=== PATIENT | female | born 1945 | race African-American/Black ===

== ENCOUNTER 2017-04-09 11:05 | Inpatient (IN) | payer SELFPAY ==
[~2017-04-09] VITALS: Ht 170.2 cm; Wt 70.3 kg
[~2017-04-09 11:05] MED LIST: AMLODIPINE BESYL5 M1 PO; METFORMIN HCL500 M3 PO; MICARDIS40 M1 PO; PIOGLITAZONE HC30 M1 PO; TELMISARTAN80 M1 PO; TRAMADOL HCL50 M1 PO
--- NOTE | 2017-04-09 11:23 | ED GI/GU/ABDOMINAL COMPLAINT ---
History of Present Illness General Chief Complaint: General Adult Stated Complaint: ABD PAIN/FEET PAIN Source: patient, old records Exam Limitations: no limitations Vital Signs & Intake/Output Vital Signs & Intake/Output Vital Signs Date Time Temp Pulse Resp B/P B/P Pulse O2 O2 Flow FiO2 Mean Ox Delivery Rate 04/09 1615 97.7 87 18 144/90 96 Room Air 04/09 1201 97 Room Air 04/09 1109 96.8 104 15 98 Room Air Room Air Allergies Coded Allergies: No Known Allergies (04/09/17) Reconcile Medications Atorvastatin Calcium (Lipitor) 80 MG TABLET 1 TAB PO DAILY cholestrol ( Reported) Chlorthalidone 25 MG TABLET 1 TAB PO DAILY htn (Reported) Linagliptin (Tradjenta) 5 MG TABLET 1 TAB PO DAILY dm (Reported) Lisinopril 20 MG TABLET 1 TAB PO DAILY BP (Reported) Metformin HCl 500 MG TABLET 1 TAB PO BID DIABETES Triage Note: PT TO ED FOR C/C OF ABD PAIN THAT OCCURS ONLY AFTER EATING, WITH ASSOCIATED BELCHING. DENIES CHEST PAIN. DENIES N/V/D. PAIN HAS BEEN GOING ON FOR A COUPLE OF MONTHS. Triage Nurses Notes Reviewed? yes ? n Is pt currently ? No Onset: Gradual Duration: week(s):, intermittent, waxing and waning Timing: recent history Quality/Severity: aching Severity Numbers: 5 Radiation: no radiation Activities at Onset: eating Prior Abdominal Problems: none Modifying Factors: Worsens With: eating. Associated Symptoms: denies HPI: 71-year-old female history of hypertension diabetes presents emergency room with family after she moved here from [place] 2 weeks ago. She states for the past several months she's had epigastric and left upper quadrant abdominal pain that is worse when she becomes hungry or after eating. She has not sought care for the symptoms until today. She denies any associated nausea vomiting diarrhea black or bloody stools clear-colored stools. No chest pain shortness of breath. No history of abdominal surgeries in the past. She denies any jaundice or weight loss. She is also requesting refill of her metformin and enalapril and atorvastatin which she ran out of 2 weeks ago when she moved here from [place]. (Zacarias DIEHL,Denis) Past History Travel History Traveled to [place] past 21 day No Medical History Any Pertinent Medical History? 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 No (Denis Dc) Review of Systems Review of Systems Constitutional: Reports: no symptoms, see HPI. Comments Review of systems: See HPI, All other systems negative. Constitutional, no chills no fever, no malaise no weight loss HEENT: no sore throat no congestion, no ear pain Cardiovascular: No chest pain , no palpitation Skin: no rashes, no change in skin Respiratory: No dyspnea no cough no sputum no hemoptysis GI: No nausea no vomiting, no diarrhea, no bloating/constipation : No dysuria No hematuria, no frequency Muscle skeletal: No joint pain, no back pain, no neck pain, Neurologic: , no headache Psych: No stress no depression,. Heme/endocrine: No bruising no bleeding Immunology: No lymphadenopathy (Denis Dc) Physical Exam Physical Exam General Appearance: well developed/nourished, no apparent distress, alert Gastrointestinal: normal bowel sounds Comments: Well-developed well-nourished person in no acute distress HEENT: Normal EENT exam; PERRL, EOMI. HEAD is atraumatic. moist mucous membranes. Neck: Supple, normal range of motion Back: Nontender, no CVA tenderness. Full range of motion Cardiovascular: Regular rate and rhythms no murmurs rub Respiratory: Chest nontender.There were no bony deformities, no asymmetry. No respiratory distress. Patient speaking in full complete sentences. Breath sounds clear to auscultation bilaterally: NO W/R/R Abdomen: Soft, nontender nondistended, no appreciable organomegaly. Normal bowel sounds. No rebound/guarding, No ascites. Extremity: No edema, full range of motion of extremities Neuro: Alert oriented x3, motor sensory normal. There were no obvious focal neurologic abnormalities. Skin: No appreciable rash on exposed skin, skin is warm and dry. No jaundice Psych: Mood and affect is normal, memory and judgment is normal. Core Measures ACS in differential dx? Yes Sepsis Present: No Sepsis Focused Exam Completed? No (Zacarias DIEHL,Denis) Progress Differential Diagnosis: AMI, bowel obstruction, colon cancer, diverticulitis, gastritis, hepatitis, hernia, inflamm bowel dis, pancreatitis, peptic ulcer, PUD /GERD, perforated viscous, SBO, malignancy,m dka, hhs Plan of Care: Orders Procedure Date/time Status LIPID PANEL 04/10 0600 Active CBC WITHOUT DIFFERENTIAL 04/10 0600 Active BASIC ELECTROLYTES PLUS BUN&CR 04/10 0600 Active Consistent Carbohydrate 2 04/09 D Active BASIC ELECTROLYTES PLUS BUN&CR 04/09 1900 Active Pathway - chart 04/09 1622 Active House Staff 04/09 1622 Active Code Status 04/09 1622 Active Add-on Test (ER Only) 04/09 1618 Active Hemoccult 04/09 1618 Active Add-on Test (ER Only) 04/09 1447 Active Patient Data 04/09 1444 Active URINALYSIS 04/09 1400 Active FingerStick- Glucose 04/09 1358 Active ED Holding Orders 04/09 1339 Active Admit to inpatient 04/09 1339 Active Vital Signs 04/09 1339 Active Code Status 04/09 1339 Complete Add-on Test (ER Only) 04/09 1232 Active Intake & Output 04/09 1159 Active TOTAL IRON BINDING CAPACITY 04/09 1145 Active SERUM OSMOLALITY 04/09 1145 Active GLYCOSYLATED HGB 04/09 1145 Active FERRITIN 04/09 1145 Active SERUM IRON 04/09 1145 Active ACETONE 04/09 1145 Active TROPONIN LEVEL 04/09 1121 Active LIPASE 04/09 1121 Active COMPREHENSIVE METABOLIC PANEL 04/09 1121 Active CBC WITHOUT DIFFERENTIAL 04/09 1121 Complete EKG 04/09 1113 Active VTE Mechanical Prophylaxis 04/09 UNK Active Current Medications Sig/Yane Start time Last Medication Dose Stop Time Status Admin Lisinopril 20 MG DAILY 04/10 1000 AC (Prinivil) Heparin Sodium 5,000 UNIT Q8 04/09 2200 AC (Porcine) Insulin Aspart 0 AT BEDTIME 04/09 2200 CAN (NovoLOG) Insulin Detemir 4 UNITS BID 04/09 2200 AC (Levemir) Insulin Aspart 0 TIDAC 04/09 1700 r (NovoLOG) Acetaminophen 650 MG Q6P PRN 04/09 1630 AC (Tylenol) Calcium Carbonate 500 MG DAILY PRN 04/09 1545 AC (TUMS) Atorvastatin Calcium 80 MG DAILY 04/09 1544 AC (Lipitor) Omeprazole 40 MG DAILY AC 04/09 1541 AC (Prilosec) Laboratory Tests 04/09/17 1145: Anion Gap 14, Estimated GFR 34 L, BUN/Creatinine Ratio 25.3 H, Glucose 613 *H, Hemoglobin A1c Pending, Serum Osmolality 318 H, Calcium 9.8, Iron 98, TIBC Pending, Ferritin Pending, Total Bilirubin 0.3, AST 13 L, ALT 23, Alkaline Phosphatase 104, Troponin I < 0.01, Total Protein 7.3, Albumin 4.2, Globulin 3.1 , Albumin/Globulin Ratio 1.4, Lipase 219, CBC w Diff NO MAN DIFF REQ, RBC 4.51, MCV 79.0 L, MCH 26.1 L, MCHC 33.1, RDW 14.6 H, MPV 9.9, Gran % 58.4, Lymphocytes % 32.9, Monocytes % 6.9, Eosinophils % 0.5, Basophils % 1.3, Absolute Granulocytes 3.3, Absolute Lymphocytes 1.9, Absolute Monocytes 0.4, Absolute Eosinophils 0, Absolute Basophils 0.1, Acetone Level NEGATIVE Labs ordered old records reviewed CAT scan ordered. Case discussed with Dr. Arroyo. Patient seen and evaluated by Dr. Arroyo agrees with plan. Insulin 10 units IV ordered IV fluids running. Patient's Gran and 1.5 BUN elevated from previous results in the past. I discussed with patient and her granddaughter all of her results and CAT scan findings and incidental findings given she is recently emigrated here from [place] and has no follow-up I believe premature discharge would BE medically harmful. They are in agreement with plan for admission Diagnostic Imaging: Viewed by Me: CT Scan. Discussed w/RAD: CT Scan. Radiology Impression: PATIENT: KHLOE RILEY PRESENT AGE: 71 PATIENT ACCOUNT NO: [id number] : 46 LOCATION: [facility] ORDERING PHYSICIAN: Denis DIEHL SERVICE DATE: 04/09/17 EXAM TYPE: CAT - CT ABD & PELVIS W/O IV CONTRAS EXAMINATION: CT ABDOMEN AND PELVIS WITHOUT CONTRAST CLINICAL INFORMATION: Epigastric, left upper quadrant abdominal pain. Nausea. COMPARISON: None TECHNIQUE: Multidetector volumetric imaging was performed from the superior aspect of the liver through the pubic symphysis. Sagittal and coronal reformatted images were obtained on the technologist's workstation. DLP: 272.46 mGy-cm FINDINGS: Evaluation is technically limited due to lack of oral and intravenous contrast. LUNG BASES: 1.2 cm maximum dimension solid-appearing lung nodule is noted at left lower lobe posteromedially (image #[id number] series 3 ; see the reyes images). Mild bronchiectatic changes are also noted at right lung base. Linear pleural parenchymal presumed scar related changes are noted within the right middle lobe. Sub-5 mm calcified lung nodule is noted at right lower lobe posteromedially. Atherosclerotic disease including coronary artery calcifications are noted. LIVER, GALLBLADDER, AND BILIARY TREE: The liver is normal in size, shape, and attenuation. No focal hepatic lesion or biliary ductal dilatation is present. The gallbladder appears collapsed. PANCREAS: Unremarkable. SPLEEN: Unremarkable. ADRENAL GLANDS: Mild thickening of both adrenal glands is noted, likely changes without any discrete mass. KIDNEYS AND URETERS: The kidneys are normal in size, shape, and attenuation. No hydronephrosis, hydroureter, or calculi seen. No perinephric stranding. Subtle hypodensity is noted within the left mid posterior cortex, most consistent with 2.5 cm cortical renal cyst (Hounsfield value of 13). BLADDER: Tiny punctate wall calcification is noted along the anterior wall of the urinary bladder, otherwise unremarkable. GASTROINTESTINAL TRACT: The small and large bowel are unremarkable. The appendix is unremarkable. ABDOMINAL WALL: No significant hernia is appreciated. LYMPH NODES: Normal. VASCULAR: Mild atherosclerotic disease is noted within the aorta and its branches. PELVIC VISCERA: There is no pelvic mass present. There is no free fluid and/or free air present. The uterus is retroverted. OSSEOUS STRUCTURES: Severe compression fracture of T12 and L4 vertebral bodies is noted, indeterminate etiology and chronicity. IMPRESSION: 1. Technically limited study due to lack of oral and intravenous contrast. 2. 1.2 cm maximum dimension solid-appearing nodule is noted at left lower lobe of the lung posteromedially. A nonemergent follow-up CT scan of the chest is recommended for further full detail evaluation. 3. Mild thickening of both adrenal glands, most consistent with mild adrenal hyperplasia. 2.5 cm left renal hypodensity, most consistent with cortical renal cyst. 4. Tiny punctate urinary bladder wall calcification. 5. Severe compression fracture of T12 and L4 vertebral bodies, indeterminate etiology and chronicity. DICTATED BY: Christi Sánchez MD DATE/TIME DICTATED:04/09/171302 WARM IN WORKER:COLEMAN DATE/ TIME TRANSCRIBED:04/09/171302 CONFIDENTIAL, DO NOT COPY WITHOUT APPROPRIATE AUTHORIZATION. <Electronically signed in Other Vendor System> SIGNED BY: Christi Sánchez MD 04/09/17 1358 Initial ED EKG: normal p-waves, normal QRS complex, normal sinus rhythm (80), nonspecific ST T wave chg (Denis Dc) Departure Departure Time of Disposition: 1450 Disposition: STILL A PATIENT Condition: Stable Clinical Impression Primary Impression: Uncontrolled diabetes mellitus Secondary Impressions: Acute kidney injury, Hyperkalemia, Lung nodule Referrals: Stephen HARTMAN,Pedro Kaur MD,Smitha Lynn Patient Has No Primary Care Dr (PCP/Family) Additional Instructions: Follow up with primary care physician dr kaur as well as watershed coordinator dr santamaria. bland diet, no fatty spicy greasy foods. protonix as directed. return at anytime sooner with any concerns Departure Forms: Customer Survey General Discharge Information Admission Note Spoke With: Jer Thomson MD Documentation of Exam: Documentation of any treatments & extenuating circumstances including Concerns Regarding Discharge (functional status, medication knowledge or non-compliance, living conditions, etc.) that warrant an admission rather than observation: ENDOCRINE, GI CONSULT, IV FLUIDS, INSULIN, PREMATURE DISCHARGE WOULD BE MEDICALLY HARMFUL, PT IS NEW TO THIS COUNTRY, NO AVAILABLE FOLLOW UP THIS WEEK. (Denis Dc) PA/MECHANICAL SYSTEMS DESIGN ENGINEER Co-Sign Statement Statement: ED Attending supervision documentation- [x] I saw and evaluated the patient. I have also reviewed all the pertinent lab results and diagnostic results. I agree with the findings and the plan of care as documented in the PA's/MECHANICAL SYSTEMS DESIGN ENGINEER's documentation. [] I have reviewed the ED Record and agree with the PA's/MECHANICAL SYSTEMS DESIGN ENGINEER's documentation. [] Additions or exceptions (if any) to the PAs/MECHANICAL SYSTEMS DESIGN ENGINEER's note and plan are summarized below: [] (Waldo Arroyo DO
[2017-04-09 11:53] LABS: ABSOLUTE BASOPHIL COUNT 0.1 /CUMM (0.0-0.2); ABSOLUTE EOSINOPHIL COUNT 0 /CUMM (0.0-0.7); ABSOLUTE GRANULOCYTE CT 3.3 /CUMM (1.4-6.5); ABSOLUTE LYMPH COUNT 1.9 /CUMM (1.2-3.4); ABSOLUTE MONOCYTE COUNT 0.4 /CUMM (0.10-0.60); BASOPHIL % 1.3 % (0.0-2.0); EOSINOPHIL % 0.5 % (0-5); GRANULOCYTE % 58.4 % (42.2-75.2); HEMATOCRIT 35.6 % (37-47); MEAN CORPUSCULAR HGB 26.1 PG (27.0-31.0); MEAN CORPUSCULAR HGB CONC 33.1 G/DL (33.0-37.0); MEAN PLATELET VOLUME 9.9 FL (7.4-10.4); PLATELET COUNT 195 /CUMM (130-400); RBC DISTRIBUTION WIDTH 14.6 % (11.5-14.5); RED BLOOD CELL CT 4.51 /CUMM (4.20-5.40); WHITE BLOOD CELL COUNT 5.7 /CUMM (4.8-10.8)
--- NOTE | 2017-04-09 13:58 | CT SCAN REPORT ---
EXAMINATION: CT ABDOMEN AND PELVIS WITHOUT CONTRAST CLINICAL INFORMATION: Epigastric, left upper quadrant abdominal pain. Nausea. COMPARISON: None TECHNIQUE: Multidetector volumetric imaging was performed from the superior aspect of the liver through the pubic symphysis. Sagittal and coronal reformatted images were obtained on the technologist's workstation. DLP: 272.46 mGy-cm FINDINGS: Evaluation is technically limited due to lack of oral and intravenous contrast. LUNG BASES: 1.2 cm maximum dimension solid-appearing lung nodule is noted at left lower lobe posteromedially (image #[id number] series 3; see the reyes images). Mild bronchiectatic changes are also noted at right lung base. Linear pleural parenchymal presumed scar related changes are noted within the right middle lobe. Sub-5 mm calcified lung nodule is noted at right lower lobe posteromedially. Atherosclerotic disease including coronary artery calcifications are noted. LIVER, GALLBLADDER, AND BILIARY TREE: The liver is normal in size, shape, and attenuation. No focal hepatic lesion or biliary ductal dilatation is present. The gallbladder appears collapsed. PANCREAS: Unremarkable. SPLEEN: Unremarkable. ADRENAL GLANDS: Mild thickening of both adrenal glands is noted, likely changes without any discrete mass. KIDNEYS AND URETERS: The kidneys are normal in size, shape, and attenuation. No hydronephrosis, hydroureter, or calculi seen. No perinephric stranding. Subtle hypodensity is noted within the left mid posterior cortex, most consistent with 2.5 cm cortical renal cyst (Hounsfield value of 13). BLADDER: Tiny punctate wall calcification is noted along the anterior wall of the urinary bladder, otherwise unremarkable. GASTROINTESTINAL TRACT: The small and large bowel are unremarkable. The appendix is unremarkable. ABDOMINAL WALL: No significant hernia is appreciated. LYMPH NODES: Normal. VASCULAR: Mild atherosclerotic disease is noted within the aorta and its branches. PELVIC VISCERA: There is no pelvic mass present. There is no free fluid and/or free air present. The uterus is retroverted. OSSEOUS STRUCTURES: Severe compression fracture of T12 and L4 vertebral bodies is noted, indeterminate etiology and chronicity. IMPRESSION: 1. Technically limited study due to lack of oral and intravenous contrast. 2. 1.2 cm maximum dimension solid-appearing nodule is noted at left lower lobe of the lung posteromedially. A nonemergent follow-up CT scan of the chest is recommended for further full detail evaluation. 3. Mild thickening of both adrenal glands, most consistent with mild adrenal hyperplasia. 2.5 cm left renal hypodensity, most consistent with cortical renal cyst. 4. Tiny punctate urinary bladder wall calcification. 5. Severe compression fracture of T12 and L4 vertebral bodies, indeterminate etiology and chronicity.
--- NOTE | 2017-04-09 14:54 | History & Physical ---
Kg Braswell 04/09/17 1453: General Information and HPI MD Statement: I have seen and personally examined KHLOE COLBERT and documented this H&P. The patient is a 71 year old F who presented with a patient stated chief complaint of [abd pain, med refill, high sugar]. Source of Information: patient, family Exam Limitations: no limitations History of Present Illness: 71 year old lady with pmh of diabetes on metformin and transient, hypertension on lisinopril came with chief complaint of abdominal discomfort in the epigastric area with mild dizziness. Information was obtained from patient and her daughter. Apparently patient had mild epigastric discomfort she is feeling hungry with empty stomach for many months, and she felt faint with occasional acid reflux after meals. Patient denies any nausea, vomiting, weight loss, weight gain, melena, bloody bowel movements, RUQ tenderness, chest pain, shortness of breath. She does report of polyuria with occasional urge incontinence at nights Patient does report of occasional weakness in the ankles with possible tingling but no numbness, blurry vision, weakness anywhere else, joint pain. Apparently patient has been falling of any PCP in [facility] however she left to [place] for couple of months and she was out of medication after coming back to [place] for couple of weeks. Vital signs in the ED were stable, EKG shows sinus rhythm, 95, elevated INR in V4 and V5 and V6 with inverted T's, QTC 453 Potassium 5.3, sodium 133, chloride 95, creatinine 1.5, glucose 613, serum osmolality 318, troponin 0.01, lipase, amylase, ALT, AST were unremarkable, hemoglobin 11.8, MCV [address] scan IMPRESSION: 1. Technically limited study due to lack of oral and intravenous contrast. 2. 1.2 cm maximum dimension solid-appearing nodule is noted at left lower lobe of the lung posteromedially. A nonemergent follow-up CT scan of the chest is recommended for further full detail evaluation. 3. Mild thickening of both adrenal glands, most consistent with mild adrenal hyperplasia. 2.5 cm left renal hypodensity, most consistent with cortical renal cyst. 4. Tiny punctate urinary bladder wall calcification. 5. Severe compression fracture of T12 and L4 vertebral bodies, indeterminate etiology and chronicity. Allergies/Medications Allergies: Coded Allergies: No Known Allergies (04/09/17) Home Med list Atorvastatin Calcium (Lipitor) 80 MG TABLET 1 TAB PO DAILY cholestrol ( Reported) Chlorthalidone 25 MG TABLET 1 TAB PO DAILY htn (Reported) Cholecalciferol (Vitamin D3) 1,000 UNIT TABLET 2,000 IU PO DAILY Bone health Glimepiride 2 MG TABLET 1 TAB PO DAILY BLOOD SUGAR take with bigger meal Linagliptin (Tradjenta) 5 MG TABLET 1 TAB PO DAILY dm (Reported) Lisinopril 20 MG TABLET 1 TAB PO DAILY BP (Reported) Metformin HCl (Metformin HCl ER) 1,000 MG TAB.ER.24 1 TAB PO BID bLOOD SUGAR WITH BREAKFAST AND WITH DINNER Metformin HCl 500 MG TABLET 1 TAB PO BID DIABETES Omeprazole 20 MG CAPSULE.DR 40 MG PO DAILY AC STOMACH HEALTH Past History Travel History Traveled to [place] past 21 day No Medical History Neurological: NONE EENT: NONE Cardiovascular: hypertension Respiratory: NONE Gastrointestinal: NONE Hepatic: NONE Renal: NONE Musculoskeletal: NONE Psychiatric: NONE Endocrine: diabetes Blood Disorders: NONE Cancer(s): NONE OBGYN NURSE/Reproductive: NONE Surgical History Surgical History: non-contributory Past Family/Social History Psychosocial History ETOH Use: denies use Illicit Drug Use: denies illicit drug use Review of Systems Review of Systems Constitutional: Reports: see HPI. Exam & Diagnostic Data Last 24 Hrs of Vital Signs/I&O Vital Signs Date Time Temp Pulse Resp B/P B/P Pulse O2 O2 Flow FiO2 Mean Ox Delivery Rate 04/09 1700 98.7 75 18 152/70 100 Room Air 04/09 1615 97.7 87 18 144/90 96 Room Air 04/09 1201 97 Room Air 04/09 1109 96.8 104 15 98 Room Air Room Air Intake & Output 04/09 1600 04/09 0800 04/09 0000 Intake Total 0 Output Total Balance 0 Intake, Oral 0 Patient 71.668 kg Weight Weight Reported by Patient Measurement Method Physical Exam General Appearance Alert, Oriented X3, Cooperative, No Acute Distress Cardiovascular Regular Rate, Normal S1, Normal S2, marked s2 Lungs Clear to Auscultation, Normal Air Movement Abdomen Normal Bowel Sounds, Soft, mild epigastric tenderness Neurological Normal Speech, Strength at 5/5 X4 Ext Extremities No Clubbing, No Cyanosis, No Edema Assessment/Plan Assessment: 71 year old lady with pmh of diabetes on metformin and transient, hypertension on lisinopril came with chief complaint of abdominal discomfort in the epigastric area with mild dizziness. Information was obtained from patient and her daughter. Apparently patient had mild epigastric discomfort she is feeling hungry with empty stomach for many months, and she felt faint with occasional acid reflux after meals. Patient denies any nausea, vomiting, weight loss, weight gain, melena, bloody bowel movements, RUQ tenderness, chest pain, shortness of breath. She does report of polyuria with occasional urge incontinence at nights Vital signs in the ED were stable, EKG shows sinus rhythm, 95, elevated INR in V4 and V5 and V6 with inverted T's, QTC 453 Potassium 5.3, sodium 133, chloride 95, creatinine 1.5, glucose 613, serum osmolality 318, troponin 0.01, lipase, amylase, ALT, AST were unremarkable, hemoglobin 11.8, MCV [address] scan IMPRESSION: 1. Technically limited study due to lack of oral and intravenous contrast. 2. 1.2 cm maximum dimension solid-appearing nodule is noted at left lower lobe of the lung posteromedially. A nonemergent follow-up CT scan of the chest is recommended for further full detail evaluation. 3. Mild thickening of both adrenal glands, most consistent with mild adrenal hyperplasia. 2.5 cm left renal hypodensity, most consistent with cortical renal cyst. 4. Tiny punctate urinary bladder wall calcification. 5. Severe compression fracture of T12 and L4 vertebral bodies, indeterminate etiology and chronicity. Assessment Hyperglycemia without DKA Noncompliance with medication Hypertension Epigastric pain Microcytic anemia Elevated creatinine MCKENNA versus CKD Compression fracture of T12 and L4 Polyuria HLP Plan Admit to general medicine floor Put the patient on low-dose sliding scale insulin and low-dose Levemir twice a day Hold metformin and transient Continue lisinopril Check hemoglobin A1c and lipid panel Continue statin Check iron panel and Check stool guaiacs Patient may need outpatient GI follow-up Check PTH, vitamin D Patient may need outpatient DEXA scan and alendronate therapy Check UA to rule out any infection Start the patient on Tums and PPI Endocrinology consultation in the morning Full code, DVT prophylaxis is mechanical and subcutaneous heparin, Tylenol for pain, diabetic diet As Ranked By This Provider Problem List: 1. Hyperglycemia Core Measures/Misc (10/30) Acute Coronary Syndrome ACS Diagnosis: No Congestive Heart Failure Congestive Heart Failure Diagnosis No Cerebrovascular Accident CVA/TIA Diagnosis: No VTE (View Protocol) VTE Risk Factors Age>40 No Mechanical VTE Prophylaxis d/t N/A MechProphylax Ordered No VTE Pharm Prophylaxis d/t NA PharmProphylax ordered Sepsis (View protocol) Sepsis Present: No Jer Thomson MD 04/09/17 1832: Attending MD Review Statement Attending Statement Attending MD Statement: examined this patient, discuss w/resident/PA/ORTHOPEDIC PHYSICAL THERAPIST, agreed w/resident/PA/ORTHOPEDIC PHYSICAL THERAPIST, discussed with nursing Attending Assessment/Plan: Ms. Colbert is a 71-year-old female, who is originally from [place] lives in [place] current, went to visit [place]. She has a history of diabetes on metformin, patient has not been taking diabetes medications for the last 2 weeks because she ran out of it and she was in [place]. Patient presents with complaints of abdominal pain found to have a blood glucose level of 613. Patient is not in DKA possibly moving towards hyperosmolar state. Will initiate the patient on insulin Levemir 4 units twice a day along with sliding scale insulin (patient is insulin naive). Obtain endocrinology consult and HbA1C. And is already feeling better in terms of resolving abdominal pain - the blood glucose levels are coming down. Continue with Prilosec and lisinopril. Carbohydrate controlled diet.
[2017-04-09] MEDS ORDERED: CHLORTHALIDONE25 M1 PO (15:23)
[2017-04-09] MEDS ORDERED: LISINOPRIL20 M1 PO (15:25)
[2017-04-09] MEDS ORDERED: TRADJENTA5 M1 PO (15:25)
[2017-04-09] MEDS ORDERED: LIPITOR80 M1 PO (15:26)
[2017-04-09 17:00] VITALS: BP 152/70
[2017-04-09 22:35] VITALS: BP 154/66
--- NOTE | 2017-04-10 06:38 | PN- Housestaff ---
Miguelangel Lemus MD,Ami 04/10/17 0638: Subjective Follow-up For: Hyperglycemia MCKENNA VS ckd compression fracture Subjective: Patient visited today, was lying in bed comfortably in no acute distress, was alert and oriented. noted was not taking any medication fot he last 2 weeks. No fever or chills, no shortness of breathing, no chest pain, no other events. Started on Insuline, adjusted dose, recieving fluids. Review of Systems Constitutional: Reports: see HPI. Objective Last 24 Hrs of Vital Signs/I&O Vital Signs Date Time Temp Pulse Resp B/P B/P Pulse O2 O2 Flow FiO2 Mean Ox Delivery Rate 04/10 1009 72 160/100 04/10 0712 98.0 69 18 148/68 99 04/09 2235 98.2 73 20 154/66 99 Room Air 04/09 1700 98.7 75 18 152/70 100 Room Air 04/09 1615 97.7 87 18 144/90 96 Room Air Intake & Output 04/10 1600 04/10 0800 04/10 0000 Intake Total 490 250 Output Total Balance 490 250 Intake, IV 10 10 Intake, Oral 480 240 Number 0 0 Bowel Movements Patient 155 lb Weight Weight Reported by Patient Measurement Method Physical Exam General Appearance: Alert, Oriented X3, Cooperative, No Acute Distress Skin Temp/Moisture Exam: Warm/Dry Sepsis Skin Exam (color): Normal for Ethnicity HEENT: Atraumatic, EOMI, Mucous Membr. moist/pink Cardiovascular: Normal S1, Normal S2 Lungs: Clear to Auscultation, Normal Air Movement Abdomen: Soft, No Tenderness Neurological: Normal Speech Extremities: No Edema Current Medications: Current Medications Sig/Yane Start time Last Medication Dose Route Stop Time Status Admin Acetaminophen 650 MG Q6P PRN 04/09 1630 AC PO Atorvastatin Calcium 80 MG DAILY 04/09 1544 AC 04/10 PO 0956 Calcium Carbonate 500 MG DAILY PRN 04/09 1545 AC PO Heparin Sodium 5,000 UNIT Q8 04/09 2200 AC 04/10 (Porcine) SC 0621 Insulin Aspart 0 TIDAC 04/10 1700 UNVr SC Insulin Aspart 0 .[BEDTIME] 04/10 1430 UNVr SC Insulin Aspart 0 TIDAC/HS 04/10 1200 DC 04/10 SC 1229 Insulin Aspart 0 AT BEDTIME 04/09 2200 CAN SC Insulin Aspart 0 TIDAC 04/09 1700 DC 04/09 LA 1837 Insulin Detemir 10 UNITS BID 04/10 1000 04/10 LA 0957 Insulin Detemir 4 UNITS BID 04/09 2200 W[place] 04/09 LA 2210 Lisinopril 20 MG DAILY 04/10 1000 04/10 PO 1009 Omeprazole 40 MG DAILY AC 04/09 1541 AC 04/10 PO 0621 Sodium Chloride 1,000 ML Q10H 04/10 0945 AC 04/10 IV 04/11 0544 1009 Sodium Chloride 1,000 ML BOLUS ONE 04/09 1400 DC 04/09 IV 04/09 1459 1413 Last 24 Hrs of Lab/Vivek Results Last 24 Hrs of Labs/Mics: Laboratory Tests 04/10/17 0739: Anion Gap 10, Estimated GFR 44 L, BUN/Creatinine Ratio 23.3, Triglycerides 195 H, Cholesterol 224 H, LDL Cholesterol, Calc 143 H, HDL Cholesterol 42, Cholesterol/HDL Ratio 5 H, PTH Intact 50.9, CBC w Diff NO MAN DIFF REQ, RBC 4.09 L, MCV 79.9 L, MCH 26.7 L, MCHC 33.4, RDW 14.8 H, MPV 10.3, Gran % 52.8 , Lymphocytes % 38.6, Monocytes % 7.1, Eosinophils % 1.1, Basophils % 0.4, Absolute Granulocytes 3.1, Absolute Lymphocytes 2.2, Absolute Monocytes 0.4, Absolute Eosinophils 0.1, Absolute Basophils 0 04/10/17 0445: Urinalysis LIGHT H, Urine Color STRAW, Urine Clarity CLEAR, Urine pH 6.0, Ur Specific [place] 1.010, Urine Protein TRACE H, Urine Ketones NEG, Urine Nitrite NEG, Urine Bilirubin NEG, Urine Urobilinogen 0.2, Ur Leukocyte Esterase NEG, Ur Microscopic SEDIMENT EXAMINED, Urine RBC RARE, Urine WBC RARE, Ur Epithelial Cells RARE, Urine Bacteria RARE H, Micro UA Comment BUDDING YEAST H, Urine Hemoglobin NEG, Urine Glucose 500 H 04/09/171943: Glucose 361 H 04/09/171943: Anion Gap 11, Estimated GFR 34 L, BUN/Creatinine Ratio 23.3 Assessment/Plan Assessment: 71 year old lady with pmh of diabetes on metformin and transient, hypertension on lisinopril came with chief complaint of abdominal discomfort in the epigastric area with mild dizziness. Information was obtained from patient and her daughter. Apparently patient had mild epigastric discomfort she is feeling hungry with empty stomach for many months, and she felt faint with occasional acid reflux after meals. Patient denies any nausea, vomiting, weight loss, weight gain, melena, bloody bowel movements, RUQ tenderness, chest pain, shortness of breath. She does report of polyuria with occasional urge incontinence at nights Vital signs in the ED were stable, EKG shows sinus rhythm, 95, elevated INR in V4 and V5 and V6 with inverted T's, QTC 453 Potassium 5.3, sodium 133, chloride 95, creatinine 1.5, glucose 613, serum osmolality 318, troponin 0.01, lipase, amylase, ALT, AST were unremarkable, hemoglobin 11.8, MCV [address] scan IMPRESSION: 1. Technically limited study due to lack of oral and intravenous contrast. 2. 1.2 cm maximum dimension solid-appearing nodule is noted at left lower lobe of the lung posteromedially. A nonemergent follow-up CT scan of the chest is recommended for further full detail evaluation. 3. Mild thickening of both adrenal glands, most consistent with mild adrenal hyperplasia. 2.5 cm left renal hypodensity, most consistent with cortical renal cyst. 4. Tiny punctate urinary bladder wall calcification. 5. Severe compression fracture of T12 and L4 vertebral bodies, indeterminate etiology and chronicity. Assessment Hyperglycemia without DKA Noncompliance with medication Hypertension Epigastric pain Microcytic anemia Elevated creatinine MCKENAN versus CKD Compression fracture of T12 and L4 Polyuria HLP Plan Continue general medicine floor Put the patient sliding scale insulin, TIDS and HS different scale Hold metformin and transient Continue lisinopril, consider hold cosnidering kdiney function Check hemoglobin A1c and lipid panel Continue statin FOLLOW iron panel and Check stool guaiacs Patient may need outpatient GI follow-up Check PTH, vitamin D Patient may need outpatient DEXA scan and alendronate therapy Check UA to rule out any infection Start the patient on Tums and PPI Endocrinology consultation Continue Vitd Full code, DVT prophylaxis is mechanical and subcutaneous heparin, Tylenol for pain, diabetic diet Problem List: 1. Uncontrolled diabetes mellitus Pain Ratin Pain Location: None Pain Goal: Pain 4 or less Pain Plan: Continue currnet plan Tomorrow's Labs & Rationales: CBC BEP Last Andres 04/10/17 1321: Attending MD Review Statement Attending Statement Attending MD Statement: examined this patient, discuss w/resident/PA/TECHNICAL SALES CONSULTANT, agreed w/resident/PA/TECHNICAL SALES CONSULTANT, discussed with family, reviewed EMR data (avail), discussed with nursing, discussed with case mgmt, reviewed images, amended to note Attending Assessment/Plan: 71-year-old female, who is originally from [place] lives in [place] current, went to visit [place]. She has a history of diabetes on metformin, patient has not been taking diabetes medications for the last 2 weeks because she ran out of it and she was in [place]. Patient presents with complaints of abdominal pain found to have a blood glucose level of 613. Patient seen/examined bedside. Patient feeling better with sugar better controlled. Patient admitted for uncontrolled hyperglycemia. Patient received IVF, Endocrinology consult and f/u HbA1C. Continue with Prilosec and lisinopril. Carbohydrate controlled diet. Can resume home PO diabetic meds at discharge.
[2017-04-10 07:12] VITALS: BP 148/68
[2017-04-10 09:04] LABS: ABSOLUTE BASOPHIL COUNT 0 /CUMM (0.0-0.2); ABSOLUTE EOSINOPHIL COUNT 0.1 /CUMM (0.0-0.7); ABSOLUTE GRANULOCYTE CT 3.1 /CUMM (1.4-6.5); ABSOLUTE LYMPH COUNT 2.2 /CUMM (1.2-3.4); ABSOLUTE MONOCYTE COUNT 0.4 /CUMM (0.10-0.60); BASOPHIL % 0.4 % (0.0-2.0); EOSINOPHIL % 1.1 % (0-5); GRANULOCYTE % 52.8 % (42.2-75.2); HEMATOCRIT 32.7 % (37-47); MEAN CORPUSCULAR HGB 26.7 PG (27.0-31.0); MEAN CORPUSCULAR HGB CONC 33.4 G/DL (33.0-37.0); MEAN CORPUSCULAR VOLUME 79.9 FL (81.0-99.0); MEAN PLATELET VOLUME 10.3 FL (7.4-10.4); PLATELET COUNT 190 /CUMM (130-400); RBC DISTRIBUTION WIDTH 14.8 % (11.5-14.5); RED BLOOD CELL CT 4.09 /CUMM (4.20-5.40); WHITE BLOOD CELL COUNT 5.8 /CUMM (4.8-10.8)
--- NOTE | 2017-04-10 10:28 | Cons- Endocrinology ---
General Information and HPI Consulting Request Date of Consult: 04/10/17 Requested By: medical team Reason for Consult: management of uncontrolled diabetes type 2. Source of Information: patient Exam Limitations: no limitations History of Present Illness: 71 year old with PMH significant for diabetes type 2 on metformin and hypertension on lisinopril came with chief complaint of abdominal discomfort in the epigastric area with mild dizziness. However, she has been off on medication for several months. In ER her glucose level was 613, Cr 1.5, K 5.3 , osmolality 318, acetone negative and bicarb 23. In addition, CT scan incidentally showed T12 and L4 compression fracture and bilateral adrenal hyperplasia. Her calcium was 9.8 and 25 OH vitamin D was 19.2. However, patient didn't know that she has compression fractures in her spine. In hospital, she was put on Levemir 4 units twice a day and Novolog coverage before meals. Her FSGs were 613, 333, 359 and 259. Allergies/Medications Allergies: Coded Allergies: No Known Allergies (04/09/17) Home Med List: Atorvastatin Calcium (Lipitor) 80 MG TABLET 1 TAB PO DAILY cholestrol ( Reported) Chlorthalidone 25 MG TABLET 1 TAB PO DAILY htn (Reported) Linagliptin (Tradjenta) 5 MG TABLET 1 TAB PO DAILY dm (Reported) Lisinopril 20 MG TABLET 1 TAB PO DAILY BP (Reported) Metformin HCl 500 MG TABLET 1 TAB PO BID DIABETES Review of Systems Review of Systems Constitutional: Reports: see HPI. Cardiovascular: Denies: chest pain. Respiratory: Denies: short of breath. GI: Reports: see HPI (mid epigastric discomfort). Musculoskeletal: Denies: back pain. Past History Travel History Traveled to [place] past 21 day No Medical History Blood Transfusion Hx: No Neurological: migraine, peripheral neuropathy EENT: NONE, cataracts Cardiovascular: hyperlipidemia Respiratory: NONE Gastrointestinal: NONE, GERD Hepatic: NONE Renal: MCKENNA Musculoskeletal: NONE Psychiatric: NONE Endocrine: diabetes Blood Disorders: NONE Cancer(s): NONE CANE FEEDER/Reproductive: NONE Surgical History Surgical History: non-contributory Psychosocial History Where Do You Live? Home Smoking Status: Unknown If Ever Smoked ETOH Use: denies use Illicit Drug Use: denies illicit drug use Exam & Diagnostic Data Last 24 Hrs of Vital Signs/I&O Vital Signs Date Time Temp Pulse Resp B/P B/P Pulse O2 O2 Flow FiO2 Mean Ox Delivery Rate 02/26 1009 72 160/100 04/10 0712 98.0 69 18 148/68 99 04/09 2235 98.2 73 20 154/66 99 Room Air 04/09 1700 98.7 75 18 152/70 100 Room Air 04/09 1615 97.7 87 18 144/90 96 Room Air 04/09 1201 97 Room Air 04/09 1109 96.8 104 15 98 Room Air Room Air Intake & Output 04/10 1600 04/10 0800 04/10 0000 Intake Total 490 250 Output Total Balance 490 250 Intake, IV 10 10 Intake, Oral 480 240 Number 0 0 Bowel Movements Patient 155 lb Weight Weight Reported by Patient Measurement Method Physical Exam General Appearance: no apparent distress Neck: normal inspection Respiratory: normal breath sounds Cardiovascular: regular rate/rhythm Gastrointestinal: tenderness (mild tenderness) Extremities: no edema Labs/Vivek Results: Laboratory Tests 04/10 04/10 0739 0445 Chemistry Sodium (137 - 145 mmol/L) 133 L Potassium (3.5 - 5.1 mmol/L) 5.1 Chloride (98 - 107 mmol/L) 100 Carbon Dioxide (22 - 30 mmol/L) 23 Anion Gap (5 - 16) 10 BUN (7 - 17 mg/dL) 28 H Creatinine (0.5 - 1.0 mg/dL) 1.2 H Estimated GFR (>60 ml/min) 44 L BUN/Creatinine Ratio (7 - 25 %) 23.3 Triglycerides (<150 mg/dL) 195 H Cholesterol (<200 MG/DL) 224 H LDL Cholesterol, Calc (65 - 129 mg/dL) 143 H HDL Cholesterol (40 - 60 mg/dL) 42 Cholesterol/HDL Ratio (0.00 - 4.23 %) 5 H PTH Intact (18.4 - 80.1 pg/ML) 50.9 Hematology CBC w Diff NO MAN DIFF REQ WBC (4.8 - 10.8 /CUMM) 5.8 RBC (4.20 - 5.40 /CUMM) 4.09 L Hgb (12.0 - 16.0 G/DL) 10.9 L Hct (37 - 47 %) 32.7 L MCV (81.0 - 99.0 FL) 79.9 L MCH (27.0 - 31.0 PG) 26.7 L MCHC (33.0 - 37.0 G/DL) 33.4 RDW (11.5 - 14.5 %) 14.8 H Plt Count (130 - 400 /CUMM) 190 MPV (7.4 - 10.4 FL) 10.3 Gran % (42.2 - 75.2 %) 52.8 Lymphocytes % (20.5 - 51.1 %) 38.6 Monocytes % (1.7 - 9.3 %) 7.1 Eosinophils % (0 - 5 %) 1.1 Basophils % (0.0 - 2.0 %) 0.4 Absolute Granulocytes (1.4 - 6.5 /CUMM) 3.1 Absolute Lymphocytes (1.2 - 3.4 /CUMM) 2.2 Absolute Monocytes (0.10 - 0.60 /CUMM) 0.4 Absolute Eosinophils (0.0 - 0.7 /CUMM) 0.1 Absolute Basophils (0.0 - 0.2 /CUMM) 0 Urines Urinalysis LIGHT H Urine Color (YEL,AMB,STR) STRAW Urine Clarity (CLEAR) CLEAR Urine pH (5.0 - 8.0) 6.0 Ur Specific [place] (1.001 - 1.035) 1.010 Urine Protein (NEG,<30 MG/DL) TRACE H Urine Ketones (NEG) NEG Urine Nitrite (NEG) NEG Urine Bilirubin (NEG) NEG Urine Urobilinogen (0.1 - 1.0 EU/dl) 0.2 Ur Leukocyte Esterase (NEG) NEG Ur Microscopic SEDIMENT EXAMINED Urine RBC (0 - 5 /HPF) RARE Urine WBC (0 - 2 /HPF) RARE Ur Epithelial Cells (NONE,FEW) RARE Urine Bacteria (NEG/NONE) RARE H Micro UA Comment BUDDING YEAST H Urine Hemoglobin (NEG) NEG Urine Glucose (N MG/DL) 500 H 04/09 04/09 04/09 1944 1944 1145 Chemistry Sodium (137 - 145 mmol/L) 133 L 133 L Potassium (3.5 - 5.1 mmol/L) 5.1 5.3 H Chloride (98 - 107 mmol/L) 100 95 L Carbon Dioxide (22 - 30 mmol/L) 22 23 Anion Gap (5 - 16) 11 14 BUN (7 - 17 mg/dL) 35 H 38 H Creatinine (0.5 - 1.0 mg/dL) 1.5 H 1.5 H Estimated GFR (>60 ml/min) 34 L 34 L BUN/Creatinine Ratio (7 - 25 %) 23.3 25.3 H Glucose (65 - 99 mg/dL) 361 H 613 *H Hemoglobin A1c (4.2 - 5.8 %) Pending Serum Osmolality (285 - 295 MOSM/KG) 318 H Calcium (8.4 - 10.2 mg/dL) 9.8 Iron (37 - 170 ug/dL) 98 TIBC (265 - 497 ug/dL) 265 Ferritin (11.1 - 264 ng/mL) 520.0 H Total Bilirubin (0.2 - 1.3 mg/dL) 0.3 AST (14 - 36 U/L) 13 L ALT (9 - 52 U/L) 23 Alkaline Phosphatase (<127 U/L) 104 Troponin I (< 0.11 ng/ml) < 0.01 Total Protein (6.3 - 8.2 g/dL) 7.3 Albumin (3.5 - 5.0 g/dL) 4.2 Globulin (1.9 - 4.2 gm/dL) 3.1 Albumin/Globulin Ratio (1.1 - 2.2 %) 1.4 Lipase (23 - 300 U/L) 219 25-OH Vitamin D Total (30 - 100 ng/ml) 19.2 L Hematology CBC w Diff NO MAN DIFF REQ WBC (4.8 - 10.8 /CUMM) 5.7 RBC (4.20 - 5.40 /CUMM) 4.51 Hgb (12.0 - 16.0 G/DL) 11.8 L Hct (37 - 47 %) 35.6 L MCV (81.0 - 99.0 FL) 79.0 L MCH (27.0 - 31.0 PG) 26.1 L MCHC (33.0 - 37.0 G/DL) 33.1 RDW (11.5 - 14.5 %) 14.6 H Plt Count (130 - 400 /CUMM) 195 MPV (7.4 - 10.4 FL) 9.9 Gran % (42.2 - 75.2 %) 58.4 Lymphocytes % (20.5 - 51.1 %) 32.9 Monocytes % (1.7 - 9.3 %) 6.9 Eosinophils % (0 - 5 %) 0.5 Basophils % (0.0 - 2.0 %) 1.3 Absolute Granulocytes (1.4 - 6.5 /CUMM) 3.3 Absolute Lymphocytes (1.2 - 3.4 /CUMM) 1.9 Absolute Monocytes (0.10 - 0.60 /CUMM) 0.4 Absolute Eosinophils (0.0 - 0.7 /CUMM) 0 Absolute Basophils (0.0 - 0.2 /CUMM) 0.1 Toxicology Acetone Level (NEGATIVE) NEGATIVE Assessment/Plan Assessment/Plan 71 year old with PMH significant for diabetes type 2 on metformin and hypertension on lisinopril came with chief complaint of abdominal discomfort in the epigastric area with mild dizziness. However, she has been off on medication for several months. In ER her glucose level was 613, Cr 1.5, K 5.3 , osmolality 318, acetone negative and bicarb 23.In hospital, she was put on Levemir 4 units twice a day and Novolog coverage before meals. Her FSGs were 613, 333, 359 and 259. In addition, CT scan incidentally showed T12 and L4 compression fracture and bilateral adrenal hyperplasia. Her calcium was 9.8 and 25 OH vitamin D was 19.2. However, patient didn't know that she has compression fractures in her spine. 1. adrenal hyperplasia/ uncontrolled hypertension --- will recommend checking PRA and aldosterone. 2. T12, L4 compression fracture/ vitamin D deficiency ---start vityamnin D3 2000 units daily; ---DEXA as outpatient and then the treatment can be determined accordingly. 3. uncontrolled DM type 2/ HHS on admission ---increase Levemir to Levemir 10 units twice a day; ---adjust Novolog coverage before meals and add Novolog coverage at bedtime; ---monitor FSGs. will follow. Inpatient Diabetes Orders Before Each Meal: Bolus Insulin: Novolog < 80 mg/dl: no coverage 80-100 mg/dl: 4 units 101-120 mg/dl: 4 units 121-150 mg/dl: 4 units 151-200 mg/dl: 5 units 201-250 mg/dl: 6 units 251-300 mg/dl: 7 units 301-350 mg/dl: 8 units 351-400 mg/dl: 9 units > 400 mg/dl: 10 units Bedtime: Bolus Insulin: Novolog < 80 mg/dl: no coverage 80-100 mg/dl: no coverage 101-120 mg/dl: no coverage 121-150 mg/dl: no coverage 151-200 mg/dl: no coverage 201-250 mg/dl: no coverage 251-300 mg/dl: 2 units 301-350 mg/dl: 3 units 351-400 mg/dl: 4 units > 400 mg/dl: 5 units Consult Acknowledgment - Thank you for your consult request.
[2017-04-10 15:42] VITALS: BP 154/66
[2017-04-10 22:56] VITALS: BP 120/68
[2017-04-11 06:29] VITALS: BP 140/84
--- NOTE | 2017-04-11 08:03 | PN- Housestaff ---
Miguelangel Lemus MD,Ami 04/11/17 0802: Subjective Follow-up For: Uncontrolled diabetes mellitus Subjective: Patient visited today, was lying in bed comfortably in no acute distress, was alert and oriented. BS improved. No fever or chills, no shortness of breathing, no chest pain, no other events. Patient was stable to be discharged on oral hypoglycemic agent according to Endo. Review of Systems Constitutional: Reports: see HPI. Objective Last 24 Hrs of Vital Signs/I&O Vital Signs Date Time Temp Pulse Resp B/P B/P Pulse O2 O2 Flow FiO2 Mean Ox Delivery Rate 04/11 1006 72 128/68 04/11 0629 97.3 70 20 140/84 99 Room Air 04/10 2256 97.9 66 18 120/68 99 Intake & Output 04/11 1600 04/11 0800 04/11 0000 Intake Total 1580 250 Output Total Balance 1580 250 Intake, IV 1100 10 Intake, Oral 480 240 Number 0 0 Bowel Movements Physical Exam General Appearance: Alert, Oriented X3, Cooperative, No Acute Distress Skin: No Significant Lesion Skin Temp/Moisture Exam: Warm/Dry Sepsis Skin Exam (color): Normal for Ethnicity HEENT: Atraumatic, EOMI, Mucous Membr. moist/pink Cardiovascular: Normal S1, Normal S2 Lungs: Clear to Auscultation, Normal Air Movement Abdomen: Soft, No Hepatospenomegaly Neurological: Strength at 5/5 X4 Ext, Cranial Nerves 3-12 NL Extremities: No Edema Current Medications: Current Medications Sig/Yane Start time Last Medication Dose Route Stop Time Status Admin Acetaminophen 650 MG Q6P PRN 04/09 1630 DCD PO Atorvastatin Calcium 80 MG DAILY 04/09 1544 DCD 04/11 PO 1003 Calcium Carbonate 500 MG DAILY PRN 04/09 1545 DCD PO Cholecalciferol 2,000 IU DAILY 04/10 1445 DCD 04/11 PO 1006 Heparin Sodium 5,000 UNIT Q8 04/09 2200 DCD 04/11 (Porcine) SC 0503 Insulin Aspart 0 TIDAC/HS 04/10 1700 DCD 04/11 SC 1002 Insulin Detemir 8 UNITS BID 04/11 1000 DCD 04/11 SC 1003 Insulin Detemir 10 UNITS BID 04/10 1000 DC 04/10 SC 2258 Lisinopril 20 MG DAILY 04/10 1000 DCD 04/11 PO 1006 Omeprazole 40 MG DAILY AC 04/09 1541 DCD 04/11 PO 0503 Sodium Chloride 1,000 ML Q10H 04/10 0945 DC 04/10 IV 04/11 0544 1935 Last 24 Hrs of Lab/Vivek Results Last 24 Hrs of Labs/Mics: Laboratory Tests 04/11/17 0650: Anion Gap 10, Estimated GFR 44 L, BUN/Creatinine Ratio 17.5, CBC w Diff NO MAN DIFF REQ, RBC 3.95 L, MCV 79.0 L, MCH 26.7 L, MCHC 33.8, RDW 14.9 H, MPV 10.5 H, Gran % 57.6, Lymphocytes % 33.6, Monocytes % 7.3, Eosinophils % 1.0, Basophils % 0.5, Absolute Granulocytes 3.1, Absolute Lymphocytes 1.8, Absolute Monocytes 0.4, Absolute Eosinophils 0.1, Absolute Basophils 0 Assessment/Plan Assessment: 71 year old lady with pmh of diabetes on metformin and transient, hypertension on lisinopril came with chief complaint of abdominal discomfort in the epigastric area with mild dizziness. Information was obtained from patient and her daughter. Apparently patient had mild epigastric discomfort she is feeling hungry with empty stomach for many months, and she felt faint with occasional acid reflux after meals. Patient denies any nausea, vomiting, weight loss, weight gain, melena, bloody bowel movements, RUQ tenderness, chest pain, shortness of breath. She does report of polyuria with occasional urge incontinence at nights Vital signs in the ED were stable, EKG shows sinus rhythm, 95, elevated INR in V4 and V5 and V6 with inverted T's, QTC 453 Potassium 5.3, sodium 133, chloride 95, creatinine 1.5, glucose 613, serum osmolality 318, troponin 0.01, lipase, amylase, ALT, AST were unremarkable, hemoglobin 11.8, MCV [address] scan IMPRESSION: 1. Technically limited study due to lack of oral and intravenous contrast. 2. 1.2 cm maximum dimension solid-appearing nodule is noted at left lower lobe of the lung posteromedially. A nonemergent follow-up CT scan of the chest is recommended for further full detail evaluation. 3. Mild thickening of both adrenal glands, most consistent with mild adrenal hyperplasia. 2.5 cm left renal hypodensity, most consistent with cortical renal cyst. 4. Tiny punctate urinary bladder wall calcification. 5. Severe compression fracture of T12 and L4 vertebral bodies, indeterminate etiology and chronicity. Assessment Hyperglycemia without DKA Noncompliance with medication Hypertension Epigastric pain Microcytic anemia Elevated creatinine MCKENNA versus CKD Compression fracture of T12 and L4 Polyuria HLP Plan patient stable to be discharged Put the patient sliding scale insulin, TIDS and HS different scale will change to PO medication Continue lisinopril, consider hold cosnidering kdiney function Continue statin Endocrinology consultation was done, patient need to follow in outpatient Continue Vitd Full code, DVT prophylaxis is mechanical and subcutaneous heparin, Tylenol for pain, diabetic diet Problem List: 1. Uncontrolled diabetes mellitus Pain Ratin Pain Location: None Pain Goal: Pain 4 or less Pain Plan: Continue current plan Tomorrow's Labs & Rationales: None Mckenna,Last 04/11/17 1142: Attending MD Review Statement Attending Statement Attending MD Statement: examined this patient, discuss w/resident/PA/HVAC MANAGER, agreed w/resident/PA/HVAC MANAGER, discussed with family, reviewed EMR data (avail), discussed with nursing, discussed with case mgmt, reviewed images, amended to note Attending Assessment/Plan: 71-year-old female, who is originally from [place] lives in [place] current, went to visit [place]. She has a history of diabetes on metformin now found to have Hbaic 13. Patient seen/examined bedside. Patient feeling better with sugar better controlled. 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 Endocrinology consulted and recommmend increasing PO daibetic regimen. Continue with Prilosec and lisinopril. (patient consider insulin use and will d.w o/p endo) Advised dietary and lfiestyle modifications. FOLLOW UP PCP in 1 week of dc Endocrinology in 1-2 weeks of discharge.
[2017-04-11] MEDS ORDERED: VITAMIN D31000 UNI2 PO ×2 (08:13→11:51)
--- NOTE | 2017-04-11 08:16 | Discharge Summary ---
Visit Information Visit Dates Admission Date: 04/09/17 Discharge Date: 04/11/17 Hospital Course Course Attending Physician: Jer Thomson MD Primary Care Physician: Patient Has No Primary Care Dr Hospital Course: 71 year old lady with pmh of diabetes on metformin and transient, hypertension on lisinopril came with chief complaint of abdominal discomfort in the epigastric area with mild dizziness. Information was obtained from patient and her daughter. Apparently patient had mild epigastric discomfort she is feeling hungry with empty stomach for many months, and she felt faint with occasional acid reflux after meals. Patient denies any nausea, vomiting, weight loss, weight gain, melena, bloody bowel movements, RUQ tenderness, chest pain, shortness of breath. She does report of polyuria with occasional urge incontinence at nights Vital signs in the ED were stable, EKG shows sinus rhythm, 95, elevated INR in V4 and V5 and V6 with inverted T's, QTC 453 Potassium 5.3, sodium 133, chloride 95, creatinine 1.5, glucose 613, serum osmolality 318, troponin 0.01, lipase, amylase, ALT, AST were unremarkable, hemoglobin 11.8, MCV [address] scan IMPRESSION: 1. Technically limited study due to lack of oral and intravenous contrast. 2. 1.2 cm maximum dimension solid-appearing nodule is noted at left lower lobe of the lung posteromedially. A nonemergent follow-up CT scan of the chest is recommended for further full detail evaluation. 3. Mild thickening of both adrenal glands, most consistent with mild adrenal hyperplasia. 2.5 cm left renal hypodensity, most consistent with cortical renal cyst. 4. Tiny punctate urinary bladder wall calcification. 5. Severe compression fracture of T12 and L4 vertebral bodies, indeterminate etiology and chronicity. Patient was admitted to general medicine floor for management of following condition. Hyperglycemia without DKA Most likely related to patient being noncompliant with medication. Initially IV fluids and insulin was started. Patient's blood sugar was more stable later during the admission. Endocrinology was consulted and oral hypoglycemic medications were administered with recommendation to follow after discharge with PCP and endocrinology. Hypertension Blood pressure medications were resumed in the hospital and BP was controlled. Epigastric pain, Microcytic anemia Patient was started on Empiric PPI, had improvement. Patient was instructed to follow with PCP and GI specialist regarding evaluation for more improtant pathologies. Elevated creatinine MCKENNA versus CKD This could not be determined as there were no Cr results for the last 6months. Cr improved with hydration. Patient instructed to follow with PCP. Compression fracture of T12 and L4 Started vitamin D and calcium. Patient needs to follow with professor of genetics for bone scan and continuation of care. patient stable to be discharged. Patient was discharged with instructions below. Allergies: Coded Allergies: No Known Allergies (04/09/17) Disposition Summary Disposition Principal Diagnosis: Hyperglycemia, uncontrolled diabetes mellitus Additional Diagnosis: Hypertension Kidney failure Compression fracture of vertebrea Discharge Disposition: home or self care Discharge Instructions General Discharge Information Code Status: Full Code Patient's Diet: Diabetic Patient's Activity: Self-limited Follow-Up Instructions/Appts: Please follow-up with your PCP within one week of discharge. Please follow with your professor of genetics within 1 week of discharge. Please take your medication as administered, please come back to hospital if symptoms worsen. Medications at Discharge Discharge Medications: Stop taking the following medications: Metformin HCl (Metformin HCl) 500 MG TABLET ORAL TWICE DAILY Days = 7 Linagliptin (Tradjenta) 5 MG TABLET ORAL DAILY Continue taking these medications: Chlorthalidone (Chlorthalidone) 25 MG TABLET 1 Tablet ORAL DAILY Lisinopril (Lisinopril) 20 MG TABLET 1 Tablet ORAL DAILY Comments: LAST GIVEN 04/11/17 @ 1000 Atorvastatin Calcium (Lipitor) 80 MG TABLET 1 Tablet ORAL DAILY Comments: LAST GIVEN 04/11/17 @ 1000 Start taking the following new medications: Omeprazole (Omeprazole) 20 MG CAPSULE.DR 40 Milligram ORAL DAILY BEFORE BREAKFAST Qty = 30 No Refills Instructions: . Comments: LAST GIVEN 04/11/17 @ 0500 Metformin HCl (Metformin HCl ER) 1,000 MG TAB.ER.24 1 Tablet ORAL TWICE DAILY Qty = 60 No Refills Instructions: WITH BREAKFAST AND WITH DINNER. Glimepiride (Glimepiride) 2 MG TABLET 1 Tablet ORAL DAILY Qty = 30 No Refills Instructions: take with bigger meal. Cholecalciferol (Vitamin D3) 1,000 UNIT TABLET 2,000 International Unit ORAL DAILY Qty = 60 No Refills Instructions: . Comments: LAST GIVEN 04/11/17 @ 1000 Copies To: Erick HARTMAN,Yao Attending MD Review Statement Documenting Attending: Mckenna HARTMAN,Last
[2017-04-11 08:21] LABS: ABSOLUTE BASOPHIL COUNT 0 /CUMM (0.0-0.2); ABSOLUTE EOSINOPHIL COUNT 0.1 /CUMM (0.0-0.7); ABSOLUTE GRANULOCYTE CT 3.1 /CUMM (1.4-6.5); ABSOLUTE LYMPH COUNT 1.8 /CUMM (1.2-3.4); ABSOLUTE MONOCYTE COUNT 0.4 /CUMM (0.10-0.60); BASOPHIL % 0.5 % (0.0-2.0); GRANULOCYTE % 57.6 % (42.2-75.2); HEMATOCRIT 31.1 % (37-47); MEAN CORPUSCULAR HGB 26.7 PG (27.0-31.0); MEAN CORPUSCULAR HGB CONC 33.8 G/DL (33.0-37.0); MEAN PLATELET VOLUME 10.5 FL (7.4-10.4); PLATELET COUNT 182 /CUMM (130-400); RBC DISTRIBUTION WIDTH 14.9 % (11.5-14.5); RED BLOOD CELL CT 3.95 /CUMM (4.20-5.40); WHITE BLOOD CELL COUNT 5.3 /CUMM (4.8-10.8)
--- NOTE | 2017-04-11 09:43 | PN- Diabetes ---
Assessment/Plan Diabetes Assessment: 71 year old with PMH significant for diabetes type 2 on metformin and hypertension on lisinopril came with chief complaint of abdominal discomfort in the epigastric area with mild dizziness. However, she has been off on medication for several months. In ER her glucose level was 613, Cr 1.5, K 5.3 , osmolality 318, acetone negative and bicarb 23.In hospital, she was put on Levemir 4 units twice a day and Novolog coverage before meals. Her FSGs were 613, 333, 359 and 259. In addition, CT scan incidentally showed T12 and L4 compression fracture and bilateral adrenal hyperplasia. Her calcium was 9.8 and 25 OH vitamin D was 19.2. However, patient didn't know that she has compression fractures in her spine. In hospital, she was put on Levemir 10 units twice a day, Novolog coverage before meals and Novolog coverage at bedtime. Her FSGs were 111, 139 and 88. with regards to adrenal hyperplasia/ uncontrolled hypertension, PRA and aldosterone are pending. with regards to T12, L4 compression fracture/ vitamin D deficiency, vityamnin D3 2000 units daily was recommended; DEXA will be done as outpatient and then the treatment can be determined accordingly. Plan: 1. decrease Levemir to 8 units twice a day; 2. continue the current Novolog coverage before meals; 3. if she is medically stable for discharge, the discharge plan for DM: ---metformin 1000 mg twice a day with breakfast and with dinner; ---Glimepiride 2 mg daily right before the bigger meal; ---monitor FSGs. 4. f/u in office after discharge-- for DM management, work-up and treatment for osteoporosis and then the adrenal hormonal evaluation. Subjective Subjective: She feels better. Objective Last 24 Hrs of Vital Signs/I&O Vital Signs Date Time Temp Pulse Resp B/P B/P Pulse O2 O2 Flow FiO2 Mean Ox Delivery Rate 04/11 0629 97.3 70 20 140/84 99 Room Air 04/10 2256 97.9 66 18 120/68 99 04/10 1542 98.3 74 20 154/66 99 Room Air 04/10 1009 72 160/100 Intake & Output 04/11 1600 04/11 0800 04/11 0000 Intake Total 1580 250 Output Total Balance 1580 250 Intake, IV 1100 10 Intake, Oral 480 240 Number 0 0 Bowel Movements Findings Pertinent Lab/Vivek Results: `` Laboratory Tests 04/11 0650 Chemistry Sodium (137 - 145 mmol/L) 138 Potassium (3.5 - 5.1 mmol/L) 4.6 Chloride (98 - 107 mmol/L) 106 Carbon Dioxide (22 - 30 mmol/L) 22 Anion Gap (5 - 16) 10 BUN (7 - 17 mg/dL) 21 H Creatinine (0.5 - 1.0 mg/dL) 1.2 H Estimated GFR (>60 ml/min) 44 L BUN/Creatinine Ratio (7 - 25 %) 17.5 Hematology CBC w Diff NO MAN DIFF REQ WBC (4.8 - 10.8 /CUMM) 5.3 RBC (4.20 - 5.40 /CUMM) 3.95 L Hgb (12.0 - 16.0 G/DL) 10.5 L Hct (37 - 47 %) 31.1 L MCV (81.0 - 99.0 FL) 79.0 L MCH (27.0 - 31.0 PG) 26.7 L MCHC (33.0 - 37.0 G/DL) 33.8 RDW (11.5 - 14.5 %) 14.9 H Plt Count (130 - 400 /CUMM) 182 MPV (7.4 - 10.4 FL) 10.5 H Gran % (42.2 - 75.2 %) 57.6 Lymphocytes % (20.5 - 51.1 %) 33.6 Monocytes % (1.7 - 9.3 %) 7.3 Eosinophils % (0 - 5 %) 1.0 Basophils % (0.0 - 2.0 %) 0.5 Absolute Granulocytes (1.4 - 6.5 /CUMM) 3.1 Absolute Lymphocytes (1.2 - 3.4 /CUMM) 1.8 Absolute Monocytes (0.10 - 0.60 /CUMM) 0.4 Absolute Eosinophils (0.0 - 0.7 /CUMM) 0.1 Absolute Basophils (0.0 - 0.2 /CUMM) 0
[2017-04-11 10:06] VITALS: BP 128/68
[2017-04-11] MEDS ORDERED: GLIMEPIRIDE2 MG PO ×3 (10:51→11:51)
[2017-04-11] MEDS ORDERED: METFORMIN HCL1000 M2 PO ×2 (10:51→11:51)
[2017-04-11] MEDS ORDERED: OMEPRAZOLE20 M2 PO ×2 (10:52→11:51)
--- NOTE | 2017-04-11 10:56 | Patient Discharge Instructions ---
Discharge Instructions General Discharge Information You were seen/treated for: increased blood sugar Watch for these problems: severe dizziness, change in urination, pain, nausea, vomiting or worsening of any other symptoms. Special Instructions: Please follow-up with your PCP within one week of discharge. Please follow with your cullet washer within 1 week of discharge. Please take your medication as administered, please come back to hospital if symptoms worsen. Diet Continue normal diet: No Recommended Diet: Diabetic Activity Full Activity/No Limits: No Activity Self Limited: Yes Acute Coronary Syndrome Inclusion Criteria At DC or during hospital stay patient has or had the following: ACS DIAGNOSIS No Discharge Core Measures Meds if any: Prescribed or Continued at Discharge Meds if any: NOT Prescribed or Continued at Discharge Congestive Heart Failure Inclusion Criteria At DC or during hospital stay patient has or had the following: CHF DIAGNOSIS No Discharge Core Measures Meds if any: Prescribed or Continued at Discharge Meds if any: NOT Prescribed or Continued at Discharge Cerebrovascular accident Inclusion Criteria At DC or during hospital stay patient has or had the following: CVA/TIA Diagnosis No Discharge Core Measures Meds if any: Prescribed or Continued at Discharge Meds if any: NOT Prescribed or Continued at Discharge Venous thromboembolism Inclusion Criteria VTE Diagnosis No VTE Type NONE VTE Confirmed by (Test) NONE Discharge Core Measures - Per Current guidelines, there needs to be overlap - treatment for the first 5 days of Warfarin therapy. - If discharged on Warfarin prior to 5 days of - overlap therapy, the patient will need to be - assessed for post discharge needs including - *Post discharge parental anticoagulation - *Warfarin and/or parental anticoagulation education - *Follow up date to check INR post discharge At least 5 days overlap therapy as Inpatient No Meds if any: Prescribed or Continued at Discharge Note: Overlap Therapy is Warfarin and Anticoagulant Meds if any: NOT Prescribed or Continued at Discharge
== END 2017-04-11 12:43 | DRG 638 ==
LOC: ERH 11:05 → 2NB 13:39 → ERHI 13:39 → 2NB 13:39 → ENRESERV 15:56 → ENTRNSPT 16:26 → 2NB 16:44 → CMPTRNSPT 17:00 → ENTRNSPT 04-11 12:27 → EDTRNSPTSTS 04-11 12:28 → EDTRNSPT 04-11 12:28 → CMPTRNSPT 04-11 12:34 → 2NB 04-11 12:43
PROVIDERS: Internal Medicine; Physician Assistant Medical; Radiology Vascular & Interventional Radiology
DX: E11.65 Type 2 diabetes mellitus with hyperglycemia (principal); M48.54XA Collapsed vertebra, not elsewhere classified, thoracic region, initial encounter for fracture; M48.56XA Collapsed vertebra, not elsewhere classified, lumbar region, initial encounter for fracture; E11.42 Type 2 diabetes mellitus with diabetic polyneuropathy; E78.5 Hyperlipidemia, unspecified; K21.9 Gastro-esophageal reflux disease without esophagitis; D50.9 Iron deficiency anemia, unspecified; I10 Essential (primary) hypertension; E55.9 Vitamin D deficiency, unspecified; Z91.14 Patient's other noncompliance with medication regimen; Z79.84 Long term (current) use of oral hypoglycemic drugs
CPT/HCPCS: 2NBSP; 36415; 36592; 74176; 81001; 82436; 93005; 93010; 96361; 96374; J1644

== ENCOUNTER 2017-07-12 11:49 | Inpatient (IN) | payer OTHER ==
[~2017-07-12] VITALS: Ht 167.6 cm; Wt 76.4 kg
[~2017-07-12 11:49] MED LIST changes: +CHLORTHALIDONE25 M1 PO; +ENALAPRIL MALEA10 M1 PO; +GLIMEPIRIDE2 MG PO; +GLUCOPHAGE1000 M1 PO; +LIPITOR80 M1 PO; +LISINOPRIL20 M1 PO; +METFORMIN HCL1000 M2 PO; +OMEPRAZOLE20 M2 PO; +TRADJENTA5 M1 PO; +VITAMIN D31000 UNI2 PO
[2017-07-12 13:00] LABS: ABSOLUTE BASOPHIL COUNT 0 /CUMM (0.0-0.2); ABSOLUTE EOSINOPHIL COUNT 0 /CUMM (0.0-0.7); ABSOLUTE GRANULOCYTE CT 4.4 /CUMM (1.4-6.5); ABSOLUTE LYMPH COUNT 1.4 /CUMM (1.2-3.4); ABSOLUTE MONOCYTE COUNT 0.4 /CUMM (0.10-0.60); BASOPHIL % 0.2 % (0.0-2.0); EOSINOPHIL % 0.4 % (0-5); GRANULOCYTE % 70.5 % (42.2-75.2); HEMATOCRIT 36.7 % (37-47); MEAN CORPUSCULAR HGB 27.3 PG (27.0-31.0); MEAN CORPUSCULAR HGB CONC 33.8 G/DL (33.0-37.0); MEAN CORPUSCULAR VOLUME 80.8 FL (81.0-99.0); MEAN PLATELET VOLUME 8.2 FL (7.4-10.4); PLATELET COUNT 281 /CUMM (130-400); RBC DISTRIBUTION WIDTH 14.8 % (11.5-14.5); RED BLOOD CELL CT 4.54 /CUMM (4.20-5.40); WHITE BLOOD CELL COUNT 6.3 /CUMM (4.8-10.8)
--- NOTE | 2017-07-12 13:33 | CT SCAN REPORT ---
EXAMINATION: CT HEAD WITHOUT CONTRAST CLINICAL INFORMATION: Dizziness and slurred speech. COMPARISON: None TECHNIQUE: Contiguous axial imaging was performed from the skull base to vertex without intravenous administration of contrast. DLP: 612 mGy-cm FINDINGS: There is no evidence of acute intracranial hemorrhage or territorial infarction. No abnormal mass effect or midline shift is seen. There is diffuse periventricular hypodensity in both cerebral hemispheres suggestive of chronic small vessel ischemic changes. There is moderate size hypodensity in the right frontal lobe consistent with subacute to old infarct. It is best visualized on axial image 19 and 20, series 3. And: Enlarged but symmetrical. Mild prominence of cortical sulci is noted. There is no abnormal attenuation within the brain parenchyma. The osseous structures are normal. There is a right frontal subcutaneous 9 mm soft tissue lesion likely sebaceous cyst. Best visualized image 23, series 3. Tthe mastoid air cells and visualized portions of the paranasal sinuses are well aerated. 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 No acute infarct, bleed, masses or midline shift. Age-related mild cerebral atrophy with chronic small vessel ischemic changes in both cerebral hemispheres.
--- NOTE | 2017-07-12 15:20 | ED GENERAL PEDIATRIC ---
History of Present Illness General Chief Complaint: General Adult Stated Complaint: DIZZY, WEAKNESS, +NAUSEA Source: patient, family Exam Limitations: no limitations Vital Signs & Intake/Output Vital Signs & Intake/Output Vital Signs Date Time Temp Pulse Resp B/P B/P Pulse O2 O2 Flow FiO2 Mean Ox Delivery Rate 07/12 1434 97.4 91 18 172/86 99 Allergies Coded Allergies: No Known Allergies (04/09/17) Reconcile Medications Atorvastatin Calcium (Lipitor) 80 MG TABLET 1 TAB PO DAILY cholestrol ( Reported) Chlorthalidone 25 MG TABLET 1 TAB PO DAILY htn (Reported) Cholecalciferol (Vitamin D3) 1,000 UNIT TABLET 2,000 IU PO DAILY Bone health . Enalapril Maleate 10 MG TABLET 1 TAB PO BID HTN Glimepiride 2 MG TABLET 1 TAB PO DAILY BLOOD SUGAR take with bigger meal. Lisinopril 20 MG TABLET 1 TAB PO DAILY BP (Reported) Metformin HCl (Metformin HCl ER) 1,000 MG TAB.ER.24 1 TAB PO BID bLOOD SUGAR WITH BREAKFAST AND WITH DINNER. Metformin HCl (Glucophage) 1,000 MG TABLET 1 TAB PO BID diabetes Omeprazole 20 MG CAPSULE.DR 40 MG PO DAILY AC STOMACH HEALTH . Triage Note: PT STATES LAST NIGHT IN BED SHE GOT VERY DIZZY AND HER SHE FELT LIKE SHE COULDN'T GET HER WORDS OUT. GRANDAUGHTER STATES SHE COULDN'T STAND UP AND HER WORDS WERE ALL MUFFLED. NEUROS INTACT AT TRIAGE Triage Nurses Notes Reviewed? yes HPI: Patient is a 72-year-old female with past medical history of non-insulin- dependent diabetes and hypertension, but no prior stroke or ME history, who is brought in today by her granddaughter for a seizure and dysarthria. Symptoms first occurred yesterday evening around 8 PM when she was helping her great- granddaughter with her homework. She found that she was able to formulate thoughts but unable to get her mouth to get the words out, describing the speech as "garbled." She also endorsed some word finding difficulty. She went to bed, and this morning awoke with further dysarthria, and her family was unable to understand her words. She did not present to the emergency department immediately after that, but instead got her great grandchildren before the school bus, saw them off, and then agreed to come to the ED. By the time of my encounter the patient was over 18 hours into her potential stroke syndrome, so no stroke alert was called. She endorses left greater than right upper extremity paresthesia and difficulty walking because of weakness in both of her feet, again left greater than right. She otherwise has no complaint. Past History Travel History Traveled to [place] past 21 day No Medical History Medical History: HTN Neurological: migraine, peripheral neuropathy EENT: NONE, cataracts Cardiovascular: hyperlipidemia Respiratory: NONE Gastrointestinal: NONE, GERD Hepatic: NONE Renal: MCKENNA Musculoskeletal: NONE Psychiatric: NONE Endocrine: diabetes Blood Disorders: NONE Cancer(s): NONE COBBLER UPPER/Reproductive: NONE Surgical History Hx Contributory? No Psychosocial History Who does the child live with? Daughter Child's primary language? Mongolian ETOH Use: denies use Illicit Drug Use: denies illicit drug use Family History Hx Contributory? No Review of Systems Review of Systems Constitutional: Reports: see HPI. EENTM: Reports: no symptoms. Respiratory: Reports: no symptoms. Cardiovascular: Reports: no symptoms. GI: Reports: no symptoms. Genitourinary: Reports: no symptoms. Musculoskeletal: Reports: no symptoms. Skin: Reports: no symptoms. Neurological/Psychological: Reports: see HPI, ataxia, numbness, paresthesia, weakness. Denies: cognitive dysfunction, confusion, depressed, dementia, emotional problems, headache, pre- existing deficit, tingling, tonic-clonic seizures, unable to move lower ext, unable to move upper ext. Hematologic/Endocrine: Reports: no symptoms. Immunologic/Allergic: Reports: no symptoms. All Other Systems: Reviewed and Negative Physical Exam Physical Exam General Appearance: active, alert/attentive, no apparent distress Comments: HEENT: Inspection of the head reveals a normocephalic cranium with no signs of trauma. Ophtho: Extraocular muscles are intact and pupils are equal and reactive to light bilaterally with no afferent pupillary defect. The sclera are noninjected , and there is no obvious discharge. Neck: The trachea is midline, there is no obvious asymmetry or mass over the thyroid, and there is no midline cervical spine tenderness Respiratory: The lungs are clear and equal to auscultation bilaterally without wheezes, rales, or rhonchi. The patient exhibits no signs of labored breathing. Cardiac: Regular rhythm and non-tachycardic without appreciable murmurs on auscultation. No obvious JVD. GI: Examination of the abdomen reveals no significant focal tenderness in any of the four quadrants. There is negative Taylor's sign, negative McBurney's point tenderness, negative Cody sign, negative Juan-Redd sign, and no signs of peritonitis whatsoever on percussion or deep palpation. The skin is intact with no sign of trauma or infection. : Deferred Neuro: Detailed neurologic examination reveals the patient is alert and oriented , without confusion. Cranial nerves are intact. Visual acuity normal. Patient has slight decrease in plantar flexion strength of her left lower extremity, and digital marketing assistant strength of her left upper extremity as compared to the contralateral side. She has no ongoing dysarthria or aphasia. Gait testing not safe given the patient states she has been unsteady since onset of her symptoms. Behavioral: Calm and cooperative Dermatologic: Dermatologic examination reveals no diffuse rashes or exanthems, no petechiae, no ecchymoses, and no other signs of erythema or infection. Core Measures Sepsis Present: No Sepsis Focused Exam Completed? No Progress Differential Diagnosis: pneumonia, UTI, TIA, CVA Plan of Care: Orders Procedure Date/time Status Heart Healthy Diet 07/13 B Active TROPONIN LEVEL 07/12 1203 Complete COMPREHENSIVE METABOLIC PANEL 07/12 1203 Complete CBC WITHOUT DIFFERENTIAL 07/12 1203 Complete EKG 07/12 1202 Active Laboratory Tests 07/12/17 1243: Anion Gap 15, Estimated GFR 37 L, BUN/Creatinine Ratio 24.3, Glucose 59 L, Calcium 10.3 H, Total Bilirubin 0.4, AST 36, ALT 42, Alkaline Phosphatase 70, Troponin I < 0.01, Total Protein 8.5 H, Albumin 4.7, Globulin 3.8, Albumin/ Globulin Ratio 1.2, CBC w Diff NO MAN DIFF REQ, RBC 4.54, MCV 80.8 L, MCH 27.3, MCHC 33.8, RDW 14.8 H, MPV 8.2, Gran % 70.5, Lymphocytes % 22.6, Monocytes % 6.3, Eosinophils % 0.4, Basophils % 0.2, Absolute Granulocytes 4.4, Absolute Lymphocytes 1.4, Absolute Monocytes 0.4, Absolute Eosinophils 0, Absolute Basophils 0 Comments: Subacute stroke seen on CT. Patient well out of thrombolytic window and not a candidate for endovascular intervention. Patient with ongoing symptoms, albeit resolution of her aphasia and dysarthria. Neurology paged, but no callback was received after multiple attempts. Hospitalized for further workup. NIH stroke scale was 0 given the lack of extremity drift, only very mild weakness. Departure Departure Time of Disposition: 1653 Disposition: STILL A PATIENT Condition: Guarded Clinical Impression Primary Impression: Stroke Qualifiers: CVA mechanism: unspecified Qualified Code: I63.9 - Cerebral infarction, unspecified Referrals: Patient Has No Primary Care Dr (PCP/Family) Departure Forms: Customer Survey General Discharge Information Admission Note Spoke With: Maryanne Groves MD Documentation of Exam: Documentation of any treatments & extenuating circumstances including Concerns Regarding Discharge (functional status, medication knowledge or non-compliance, living conditions, etc.) that warrant an admission rather than observation: Patient presents with subacute stroke. A lesion was seen in the right frontal region on CT. Patient requires hospitalization for further workup of this acute process. I feel that her functional status, safety, and ability to perform activities of daily living are at risk if her stroke syndrome progresses.
[2017-07-12] MEDS ORDERED: GABAPENTIN300 M2 PO (17:05)
[2017-07-12] MEDS ORDERED: GLIMEPIRIDE4 M1 PO (17:05)
[2017-07-12] MEDS ORDERED: LO-DOSE ASPIRIN81 MG PO (17:05)
[2017-07-12] MEDS ORDERED: AMLODIPINE-BEN1 EAC2 PO (17:06)
--- NOTE | 2017-07-12 17:21 | History & Physical ---
Mauricio Chowdary MD 07/12/17 1720: General Information and HPI MD Statement: I have seen and personally examined KHLOE RILEY and documented this H&P. The patient is a 72 year old F who presented with a patient stated chief complaint of [stroke]. Source of Information: patient, family Exam Limitations: no limitations History of Present Illness: Patient is a 72-year-old -Green[place] female past medical history of NIDDM, uncontrolled hypertension, hyperlipidemia, history of cataract, peripheral neuropathy, presented with episodes of inability to produce his speech, and weakness in both lower limb since one day. According to the patient, her symptoms for started on yesterday evening around 8 :00 PM when she was helping her granddaughter with her homework.She was able to formulate but not able to produce the words. She went to the bed and later on she woke up in the mid night to go to the bathroom. She was not able to get out of the bed because of the weakness in both lower leg and was also having difficulty in producing the words. She urinated into the bed. She woke up in the morning her speech was improved but she continued to have weakness in the both legs, tingling in the hands and legs. Later her granddaughter insisted her to come to the [facility] ED. At the time of history taking she was completely normal oriented to time place and person and able to understand all the conversation. Of note-she was seen by her primary care provider on 21 June and at that time her blood pressure was little bit elevated, she does not know the reading. Allergies-no known drug allergies Surgical history-no known surgical history Family history-sister with diabetes and hypertension Personal history-she lives at the [facility], she at times wobbles at the baseline, does not use walker, denies smoking and alcohol use. Allergies/Medications Allergies: Coded Allergies: No Known Allergies (04/09/17) Home Med list Amlodipine Besylate 10 MG TABLET 1 TAB PO DAILY high bp .. Aspirin (Lo-Dose Aspirin EC) 81 MG TABLET.DR 1 TAB PO DAILY HEART/BLOOD ( Reported) Atorvastatin Calcium 20 MG TABLET 1 TAB PO 1700 STROKE .. Clopidogrel Bisulfate (Plavix) 75 MG TABLET 1 TAB PO DAILY STROKE .... Glimepiride 4 MG TABLET 1 TAB PO DAILY DM (Reported) Metformin HCl (Glucophage) 1,000 MG TABLET 1 TAB PO BID diabetes Omeprazole 20 MG CAPSULE.DR 40 MG PO DAILY STOMACH HEALTH . Sitagliptin Phosphate (Januvia) 50 MG TABLET 1 TAB PO DAILY dm (Reported) Past History Travel History Traveled to [place] past 21 day No Medical History Neurological: migraine, peripheral neuropathy EENT: NONE, cataracts Cardiovascular: hyperlipidemia Respiratory: NONE Gastrointestinal: NONE, GERD Hepatic: NONE Renal: MCKENNA Musculoskeletal: NONE Psychiatric: NONE Endocrine: diabetes Blood Disorders: NONE Cancer(s): NONE SLUBBER HAND/Reproductive: NONE Surgical History Surgical History: non-contributory Past Family/Social History Psychosocial History ETOH Use: denies use Illicit Drug Use: denies illicit drug use Review of Systems Review of Systems Constitutional: Denies: no symptoms. Exam & Diagnostic Data Last 24 Hrs of Vital Signs/I&O Vital Signs Date Time Temp Pulse Resp B/P B/P Pulse O2 O2 Flow FiO2 Mean Ox Delivery Rate 07/12 2041 98.3 87 18 160/90 99 Room Air 07/12 2012 Room Air 07/12 1938 98.5 82 18 144/71 100 Room Air 07/12 1756 90 18 183/99 99 Room Air 07/12 1434 97.4 91 18 172/86 99 Intake & Output 07/12 1600 07/12 0800 07/12 0000 Intake Total Output Total Balance Patient 72.575 kg Weight Weight Standing Scale Measurement Method Physical Exam General Appearance Alert, Oriented X3, Cooperative, No Acute Distress HEENT Atraumatic, PERRLA, EOMI, Mucous Membr. moist/pink Neck Supple, No JVD, increased carotid pulses Cardiovascular Normal S1, Normal S2 Lungs Clear to Auscultation, Normal Air Movement Abdomen Soft, No Tenderness Neurological Normal Gait, Normal Speech, Strength at 5/5 X4 Ext, Normal Tone, Sensation Intact, Cranial Nerves 3-12 NL, Reflexes 2+ Extremities No Clubbing, No Cyanosis, No Edema, Normal Pulses Vascular Normal Pulses, Pulses Symmetrical Last 24 Hrs of Labs/Vivek: Laboratory Tests 07/12/17 1243: Anion Gap 15, Estimated GFR 37 L, BUN/Creatinine Ratio 24.3, Glucose 59 L, Calcium 10.3 H, Total Bilirubin 0.4, AST 36, ALT 42, Alkaline Phosphatase 70, Troponin I < 0.01, Total Protein 8.5 H, Albumin 4.7, Globulin 3.8, Albumin/ Globulin Ratio 1.2, CBC w Diff NO MAN DIFF REQ, RBC 4.54, MCV 80.8 L, MCH 27.3, MCHC 33.8, RDW 14.8 H, MPV 8.2, Gran % 70.5, Lymphocytes % 22.6, Monocytes % 6.3, Eosinophils % 0.4, Basophils % 0.2, Absolute Granulocytes 4.4, Absolute Lymphocytes 1.4, Absolute Monocytes 0.4, Absolute Eosinophils 0, Absolute Basophils 0 Diagnostic Data EKG Results Heart rate 88/min, normal sinus rhythm, QTc 392, hypertensive changes, Other Results CT scan of the head - Subacute to old right frontal lobe cortical infarct. No acute infarct, bleed, masses or midline shift. Age-related mild cerebral atrophy with chronic small vessel ischemic changes in both cerebral hemispheres. Assessment/Plan Assessment: Patient is a 72-year-old -Green[place] female past medical history of NIDDM, uncontrolled hypertension, hyperlipidemia, history of cataract, peripheral neuropathy, presented with episodes of inability to produce his speech, and weakness in both lower limb since one day. ED course - Vital signs -temperature 97.4, pulse 91, respiratory 18, blood pressure 172/86, SPO2 99% on room air. Blood workup -WBC 6.3, hemoglobin 12.4, hematocrit 36.7, platelet count 281, no band cells, sodium 142, potassium 5.5, chloride 104, carbon DEXA 23, anion gap 15, BUN 34, creatinine 1.4, GFR 37, glucose 59, calcium 10.3, total bilirubin 0.4, AST 36, ALT 42, alkaline phosphatase 70, troponin I less than 0.01, total protein 8.5, albumin 4.7. CT scan of the head - * Subacute to old right frontal lobe cortical infarct. * No acute infarct, bleed, masses or midline shift. * Age-related mild cerebral atrophy with chronic small vessel ischemic changes in both cerebral hemispheres. Subacute to old right frontal lobe cortical infarct - * Admitted to telemetry floor * Neuro check every 4 hourly * Formal swallow evaluation * We will start patient on low-dose atorvastatin 20 mg per day, tablet Plavix 75 mg per day * Follow-up carotid Doppler, lipid profile, echocardiogram * Follow-up neurology consult * We will start patient on normal saline 50 cc/h * We will hold antihypertensive for today * Physical therapy Acute kidney injury - * We will start the patient on normal saline -50 cc/h * We will hold antihypertensive for today. * We will regularly monitor BP Hyperkalemia - * EKG does not show any hyperkalemic changes * We will regularly monitor the serum potassium level Hypoglycemia -we will recheck the blood sugar level which was 140 Type 2 diabetes - * We will hold on antidiabetic medication including glimepiride, Januvia, metformin * Will follow HbA1c * Carbohydrate type II diet * Fingerstick 3 times daily/at bedtime * NovoLog according to sliding scale Asymptomatic hypercalcemia - * We will start patient on normal saline 50 cc/h * We will check her magnesium, phosphorus, PTH level, vitamin D level Peripheral neuropathy - * Patient does not want to continue tablet gabapentin which was prescribed by her PCP because she felt dizziness afterwards. CODE STATUS -full code Diet-consistent carbohydrate diet DVT prophylaxis-ALPs/heparin As Ranked By This Provider Problem List: 1. Stroke Qualifiers CVA mechanism: unspecified Qualified Code: I63.9 - Cerebral infarction, unspecified 2. Hypertension Core Measures/Misc (10/30) Acute Coronary Syndrome ACS Diagnosis: No Congestive Heart Failure Congestive Heart Failure Diagnosis No Cerebrovascular Accident CVA/TIA Diagnosis: Yes NIH Stroke Scale: Total 0 Date Last Known Well: 07/11/17 Symptom Start Date: 07/12/17 Swallow Evaluation Pass Current/Past Hx AFib/AFlutter No Comment ordered evrything VTE (View Protocol) VTE Risk Factors Age>40 No Mechanical VTE Prophylaxis d/t N/A MechProphylax Ordered No VTE Pharm Prophylaxis d/t NA PharmProphylax ordered Sepsis (View protocol) Sepsis Present: No If YES complete Sepsis Event Note If YES complete Sepsis Event Note Maryanne Groves MD 07/13/17 1119: Core Measures/Misc (10/30) Sepsis (View protocol) If YES complete Sepsis Event Note If YES complete Sepsis Event Note Attending MD Review Statement Attending Statement Attending MD Statement: examined this patient, discuss w/resident/PA/SMALLTALK DEVELOPER, agreed w/resident/PA/SMALLTALK DEVELOPER, reviewed EMR data (avail) Attending Assessment/Plan: 72F PMH HTN, T2DM presenting with episodes of garbled speech and dysphagia. Had an episode a week ago that lasted about an hour and then resolved. Then last night, felt unable to speak, was dysphonic and dysphagic, lasted several hours, and has since resolved. Prior to last week she has never had similar symptoms or any signs of stroke. She is currently completely asmyptomatic. Cranial nerve and neurological exam is normal. Per family at bedside her speech is at her baseline. Passed swallow eval. CT head shows subacute right frontal infarct. 1. Subacute right frontal stroke 2. Dysarthria Plan - Admit to telemetry - Start Plavix - High dose statin - Formal swallow evaluation - Neurology consult - Echocardiogram - Carotid doppler - No need for MRI - Continue home meds - DVT PPx
[2017-07-12 20:42] VITALS: BP 160/90
[2017-07-12 23:22] VITALS: BP 148/64
[2017-07-13 06:35] VITALS: BP 128/76
--- NOTE | 2017-07-13 07:58 | PN- Housestaff ---
Robyn Garland 07/13/17 0746: Subjective Follow-up For: -Stroke with slurring of speech, weakness in both L/L Complaints: no complaints Subjective: I have seen and examined the patient today morning, she was alert oriented to time place and person, she did not have any new complaints to offer her, her speech was clear as we talk to her today morning, her vitals were stable overnight. Review of Systems Constitutional: Reports: see HPI. Objective Last 24 Hrs of Vital Signs/I&O Vital Signs Date Time Temp Pulse Resp B/P B/P Pulse O2 O2 Flow FiO2 Mean Ox Delivery Rate 07/13 0635 98.3 98 20 128/76 94 Room Air 07/12 2322 98.1 85 16 148/64 95 Room Air 07/12 2042 98.3 87 18 160/90 99 Room Air 07/12 2012 Room Air 07/12 1938 98.5 82 18 144/71 100 Room Air 07/12 1756 90 18 183/99 99 Room Air 07/12 1434 97.4 91 18 172/86 99 Intake & Output 07/13 0800 07/13 0000 07/12 1600 Intake Total 630 200 Output Total Balance 630 200 Intake, IV 350 Intake, Oral 280 200 Patient 73.198 kg 72.575 kg Weight Weight Bed scale Standing Scale Measurement Method Physical Exam General Appearance: Alert, Oriented X3, Cooperative, No Acute Distress Skin: No Rashes, No Breakdown Cardiovascular: Normal S1, Normal S2, No Murmurs Lungs: Clear to Auscultation, Normal Air Movement Abdomen: Normal Bowel Sounds, Soft, No Tenderness Neurological: Normal Speech, Normal Tone, Sensation Intact, Cranial Nerves 3-12 NL, Reflexes 2+ Extremities: No Clubbing, No Cyanosis, No Edema, Normal Pulses Vascular: Normal Pulses Current Medications: Current Medications Sig/Yane Start time Last Medication Dose Route Stop Time Status Admin Aspirin Buffered 81 MG DAILY 07/13 1915 AC 07/12 PO 2314 Atorvastatin Calcium 20 MG 1700 07/13 170 AC PO Clopidogrel Bisulfate 75 MG DAILY 07/13 1915 AC 07/12 PO 2314 Heparin Sodium 5,000 UNIT Q8 07/12 2199 AC 07/13 (Porcine) SC 0535 Sodium Chloride 1,000 ML Q20H 07/12 221 AC 07/12 IV 2314 Last 24 Hrs of Lab/Vivek Results Last 24 Hrs of Labs/Mics: Laboratory Tests 07/13/17 0611: Sodium Pending, Potassium Pending, Chloride Pending, Carbon Dioxide Pending, Anion Gap Pending, BUN Pending, Creatinine Pending, BUN/Creatinine Ratio Pending , Triglycerides Pending, Cholesterol Pending, LDL Cholesterol, Calc Pending, HDL Cholesterol Pending, Cholesterol/HDL Ratio Pending, CBC w Diff Pending, WBC Pending, RBC Pending, Hgb Pending, Hct Pending, MCV Pending, MCH Pending, MCHC Pending, RDW Pending, Plt Count Pending, MPV Pending 07/12/17 1243: Anion Gap 15, Estimated GFR 37 L, BUN/Creatinine Ratio 24.3, Glucose 59 L, Hemoglobin A1c Pending, Calcium 10.3 H, Phosphorus 3.8, Magnesium 1.7, Total Bilirubin 0.4, AST 36, ALT 42, Alkaline Phosphatase 70, Troponin I < 0.01, Total Protein 8.5 H, Albumin 4.7, Globulin 3.8, Albumin/Globulin Ratio 1.2, 25-OH Vitamin D Total 34.5, TSH 0.886, Free T4 1.27, PTH Intact 70.3, CBC w Diff NO MAN DIFF REQ, RBC 4.54, MCV 80.8 L, MCH 27.3, MCHC 33.8, RDW 14.8 H, MPV 8.2, Gran % 70.5, Lymphocytes % 22.6, Monocytes % 6.3, Eosinophils % 0.4, Basophils % 0.2, Absolute Granulocytes 4.4, Absolute Lymphocytes 1.4, Absolute Monocytes 0.4 , Absolute Eosinophils 0, Absolute Basophils 0 Lines/Diet/Fluids Restraints: none Assessment/Plan Assessment: Ms. Cabral is a 72-year-old -[place] female came in with chief complain of slurring of speech and weakness in both lower extremities since one day prior to presentation. Past medical history significant for [id number] diabetes mellitus, uncontrolled hypertension, hyperlipidemia, history of cataracts, peripheral neuropathy On presentation she was afebrile, tmax of 97, RR 18, blood pressure was noted to be 172/86 , pulse of 91 month he was 99% saturating on room air. Significant lab work, no white count, H/H of 12.4/36.7, platelet of 281, sodium 142, potassium 5.5, anion gap of 15, BUN/creatinine 34/1.4, glucose was found to be 59, calcium of 10.3, liver function tests within normal limits, troponin less than 0.01. 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 Problem list along with assessment and plan #1 bilateral lower extremity weakness, slurring of speech Possible differentials could be hypoglycemia versus stroke, new versus evolving previous stroke, continue neuro check every 4 hours, paased swallow evaluation today, started on regualr deit,continue atorvastatin 20 mg daily, Plavix 75 mg daily, ct aspirin ,will continue to follow carotid Doppler, lipid profile and echocardiogram, neurology consult placed, awaited, PT/OT. #2 acute kidney injury Continue IV hydration, hold antihypertensives, continue to monitor BUN/creatinine. #[address] to new to monitor,treat as indicated,she was found to be hyperkalemic however there were no acute EKG changes related to hyperkalemia, will repeat bep latter today. #4 type 2 diabetes mellitus. Continue NovoLog sliding scale, continue to monitor fingersticks, NovoLog sliding scale for now while holding all antidiabetic medications. #5 Asymptomatic hypercalcemia Continue to follow magnesium, phosphorus, PTH and vitamin D level, we'll continue to treat with IV normal saline, her values of calcium were noted to be 9.8 in March 2017 and 10.0 in October 2015 #6 Peripheral neuropathy : continue gabapentin. Full code Consistent carbohydrate diet once he passes swallow eval DVT prophylaxis with heparin/Alps Problem List: 1. Stroke 2. Hyperkalemia 3. Acute kidney injury Pain Ratin Pain Location: .. Pain Goal: Remain pain free Pain Plan: tylenol Tomorrow's Labs & Rationales: bep to monitor Chayo Freeman MD 07/13/17 1115: Attending MD Review Statement Attending Statement Attending MD Statement: examined this patient, discuss w/resident/PA/CUT OUT OPERATOR, agreed w/resident/PA/CUT OUT OPERATOR, reviewed EMR data (avail), discussed with nursing, discussed with case mgmt, reviewed images Attending Assessment/Plan: 72-year-old patient of [place] origin, past medical history of diabetes and hypertension who is here with suspected subacute to acute CVA. Her main issue was that she says she knew what she wanted to say but the words were not coming out. The issue has since resolved but the CT showed a subacute to old right frontal cortical infarct. She was on an aspirin prior to admission so she's been started on Plavix for the CVA. Neurology will see her today, an echocardiogram and carotid Dopplers have been ordered. I am worried given the hyperkalemia and what appears to be the HPI so will repeat the BP later today. We've held her Norvasc and GIOVANNA inhibitor along with glimepiride and metformin. Patient is requesting no gabapentin as she feels that makes her dizzy.
[2017-07-13 08:55] LABS: ABSOLUTE BASOPHIL COUNT 0 /CUMM (0.0-0.2); ABSOLUTE EOSINOPHIL COUNT 0 /CUMM (0.0-0.7); ABSOLUTE GRANULOCYTE CT 3.2 /CUMM (1.4-6.5); ABSOLUTE LYMPH COUNT 1.6 /CUMM (1.2-3.4); ABSOLUTE MONOCYTE COUNT 0.3 /CUMM (0.10-0.60); BASOPHIL % 0.6 % (0.0-2.0); EOSINOPHIL % 0.8 % (0-5); GRANULOCYTE % 60.9 % (42.2-75.2); HEMATOCRIT 33.2 % (37-47); MEAN CORPUSCULAR HGB 27.5 PG (27.0-31.0); MEAN CORPUSCULAR HGB CONC 33.7 G/DL (33.0-37.0); MEAN CORPUSCULAR VOLUME 81.4 FL (81.0-99.0); MEAN PLATELET VOLUME 9.2 FL (7.4-10.4); PLATELET COUNT 241 /CUMM (130-400); RBC DISTRIBUTION WIDTH 15.2 % (11.5-14.5); RED BLOOD CELL CT 4.08 /CUMM (4.20-5.40); WHITE BLOOD CELL COUNT 5.3 /CUMM (4.8-10.8)
--- NOTE | 2017-07-13 09:27 | Cons- Neurology ---
General Information and HPI Consulting Request Date of Consult: 07/13/17 Requested By: Maryanne Groves MD Reason for Consult: stroke Source of Information: patient Exam Limitations: no limitations History of Present Illness: 72 y o RH F states that on July 11 her speech was garbled and her gait was unsteady. She denied associated headache, numbness or tingling, focal weakness. There were no falls. Head CT showed a subacute to chronic right MCA territory infarct and she was admitted for further investigations. Currently all of her symptoms have resolved. Allergies/Medications Allergies: Coded Allergies: No Known Allergies (04/09/17) Home Med List: Amlodipine Besylate/Benazepril (Amlodipine-Benazepril 5-20 MG) 5 MG-20 MG CAPSULE 1 CAP PO DAILY BP (Reported) Aspirin (Lo-Dose Aspirin EC) 81 MG TABLET.DR 1 TAB PO DAILY HEART/BLOOD ( Reported) Gabapentin 300 MG CAPSULE 1 CAP PO QHS UNKNOWN (Reported) Glimepiride 4 MG TABLET 1 TAB PO DAILY DM (Reported) Metformin HCl (Glucophage) 1,000 MG TABLET 1 TAB PO BID diabetes Omeprazole 20 MG CAPSULE.DR 40 MG PO DAILY AC STOMACH HEALTH . Current Medications: Current Medications Sig/Yane Start time Last Medication Dose Route Stop Time Status Admin Aspirin Buffered 81 MG DAILY 07/12 191 AC 07/13 PO 0803 Atorvastatin Calcium 20 MG 1700 07/13 1700 AC PO Clopidogrel Bisulfate 75 MG DAILY 07/12 191 AC 07/13 PO 0803 Heparin Sodium 5,000 UNIT Q8 07/12 2200 AC 07/13 (Porcine) SC 0535 Sodium Chloride 1,000 ML Q20H 07/12 2215 AC 07/12 IV 2314 Review of Systems Review of Systems: REVIEW OF SYSTEMS: (-) = negative / normal blank = not discussed Neurologic: see HPI Eyes: Cataracts ENT: (-) Constitutional: (-) CV: (-) Respiratory: (-) /Renal: (-) Musculoskeletal: (-) Skin: (-) Psychiatric: (-) Heme: (-) GI: (-) Allergy/Immune: (-) Endocrine: (-) Other: (-) Past History Travel History Traveled to [place] past 21 day No Medical History Blood Transfusion Hx: No Neurological: migraine, peripheral neuropathy EENT: NONE, cataracts Cardiovascular: hyperlipidemia Respiratory: NONE Gastrointestinal: NONE, GERD Hepatic: NONE Renal: MCKENNA Musculoskeletal: NONE Psychiatric: NONE Endocrine: diabetes Blood Disorders: NONE Cancer(s): NONE JAVASCRIPT ENGINEER/Reproductive: NONE Surgical History Surgical History: non-contributory Psychosocial History Where Do You Live? Home Services at Home: None Smoking Status: Never Smoked ETOH Use: denies use Illicit Drug Use: denies illicit drug use Exam & Diagnostic Data Vital Signs and I&O Vital Signs Date Time Temp Pulse Resp B/P B/P Pulse O2 O2 Flow FiO2 Mean Ox Delivery Rate 07/13 0635 98.3 98 20 128/76 94 Room Air 07/12 2322 98.1 85 16 148/64 95 Room Air 07/12 2042 98.3 87 18 160/90 99 Room Air 07/12 2012 Room Air 07/12 1938 98.5 82 18 144/71 100 Room Air 07/12 1756 90 18 183/99 99 Room Air 07/12 1434 97.4 91 18 172/86 99 Intake & Output 07/13 1600 07/13 0800 07/13 0000 Intake Total 630 200 Output Total Balance 630 200 Intake, IV 350 Intake, Oral 280 200 Patient 161 lb Weight Weight Bed scale Measurement Method Physical Exam: PHYSICAL EXAMINATION: nl = normal NT or blank = not tested GENERAL Appearance: nl Head: nl Eyes: nl ENT: nl Neck: nl Carotids: nl Lungs: nl Heart: nl Extremities: nl NEUROLOGIC MENTAL STATUS Level of consciousness: nl Orientation: nl Attention / Concentration: nl Memory: Not tested Fund of Knowledge: nl Speech / Language: Thick accent limits intelligibility at times, but no apparent aphasia or dysarthria. Able to follow commands NEUROLOGIC CRANIAL NERVES I: Olfaction: NT II: Optic nerves: Not visualized due to apparent cataracts Visual hernandez: nl III: Pupils: nl Levator palpebrae: nl III, IV, : Ocular alignment: nl Extraocular motility: nl Pursuits/ saccades: nl V: Facial sensation: nl Masseter/Pterygoids: nl VII: Facial Motor: nl VIII: Hearing (finger rub): nl IX, X: Uvula and palate: nl XI: SCM, Upper trap.: nl XII: Tongue: nl MOTOR / NEUROMUSCULAR Bulk: nl Tone: nl Strength: nl Rapid alternating movements: nl Fine motor movements: nl Abnormal / involuntary movements: none CEREBELLAR / COORDINATION: intact SENSATION: intact to light touch and joint position DTR's diffusely hypoactive PLANTARS: flexor GAIT: Able to march in place without loss of balance Last 48 Hours of Lab Results: Laboratory Tests 07/13 07/12 0611 1243 Chemistry Sodium (137 - 145 mmol/L) 138 142 Potassium (3.5 - 5.1 mmol/L) 5.7 H 5.5 H Chloride (98 - 107 mmol/L) 108 H 104 Carbon Dioxide (22 - 30 mmol/L) 19 L 23 Anion Gap (5 - 16) 11 15 BUN (7 - 17 mg/dL) 41 H 34 H Creatinine (0.5 - 1.0 mg/dL) 1.5 H 1.4 H Estimated GFR (>60 ml/min) 34 L 37 L BUN/Creatinine Ratio (7 - 25 %) 27.3 H 24.3 Glucose (65 - 99 mg/dL) 59 L Hemoglobin A1c (4.2 - 5.8 %) Pending Calcium (8.4 - 10.2 mg/dL) 10.3 H Phosphorus (2.5 - 4.5 mg/dL) 3.8 Magnesium (1.6 - 2.3 mg/dL) 1.7 Total Bilirubin (0.2 - 1.3 mg/dL) 0.4 AST (14 - 36 U/L) 36 ALT (9 - 52 U/L) 42 Alkaline Phosphatase (<127 U/L) 70 Troponin I (< 0.11 ng/ml) < 0.01 Total Protein (6.3 - 8.2 g/dL) 8.5 H Albumin (3.5 - 5.0 g/dL) 4.7 Globulin (1.9 - 4.2 gm/dL) 3.8 Albumin/Globulin Ratio (1.1 - 2.2 %) 1.2 Triglycerides (<150 mg/dL) 102 Cholesterol (<200 MG/DL) 171 LDL Cholesterol, Calc (65 - 129 mg/dL) 108 HDL Cholesterol (40 - 60 mg/dL) 43 Cholesterol/HDL Ratio (0.00 - 4.23 %) 4 25-OH Vitamin D Total (30 - 100 ng/ml) 34.5 TSH (0.270 - 4.200 uIU/mL) 0.886 Free T4 (0.78 - 2.44 ng/dL) 1.27 PTH Intact (18.4 - 80.1 pg/ML) 70.3 Hematology CBC w Diff NO MAN DIFF REQ NO MAN DIFF REQ WBC (4.8 - 10.8 /CUMM) 5.3 6.3 RBC (4.20 - 5.40 /CUMM) 4.08 L 4.54 Hgb (12.0 - 16.0 G/DL) 11.2 L 12.4 Hct (37 - 47 %) 33.2 L 36.7 L MCV (81.0 - 99.0 FL) 81.4 80.8 L MCH (27.0 - 31.0 PG) 27.5 27.3 MCHC (33.0 - 37.0 G/DL) 33.7 33.8 RDW (11.5 - 14.5 %) 15.2 H 14.8 H Plt Count (130 - 400 /CUMM) 241 281 MPV (7.4 - 10.4 FL) 9.2 8.2 Gran % (42.2 - 75.2 %) 60.9 70.5 Lymphocytes % (20.5 - 51.1 %) 31.1 22.6 Monocytes % (1.7 - 9.3 %) 6.6 6.3 Eosinophils % (0 - 5 %) 0.8 0.4 Basophils % (0.0 - 2.0 %) 0.6 0.2 Absolute Granulocytes (1.4 - 6.5 /CUMM) 3.2 4.4 Absolute Lymphocytes (1.2 - 3.4 /CUMM) 1.6 1.4 Absolute Monocytes (0.10 - 0.60 /CUMM) 0.3 0.4 Absolute Eosinophils (0.0 - 0.7 /CUMM) 0 0 Absolute Basophils (0.0 - 0.2 /CUMM) 0 0 Imaging/Other Studies: Hd CT 07-12-17 FINDINGS: There is no evidence of acute intracranial hemorrhage or territorial infarction. No abnormal mass effect or midline shift is seen. There is diffuse periventricular hypodensity in both cerebral hemispheres suggestive of chronic small vessel ischemic changes. There is moderate size hypodensity in the right frontal lobe consistent with subacute to old infarct. It is best visualized on axial image 19 and 20, series 3. And: Enlarged but symmetrical. Mild prominence of cortical sulci is noted. There is no abnormal attenuation within the brain parenchyma. The osseous structures are normal. There is a right frontal subcutaneous 9 mm soft tissue lesion likely sebaceous cyst. Best visualized image 23, series 3. Tthe mastoid air cells and visualized portions of the paranasal sinuses are well aerated. 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 No acute infarct, bleed, masses or midline shift. Age-related mild cerebral atrophy with chronic small vessel ischemic changes in both cerebral hemispheres. DICTATED BY: Shelley Duke MDnal DATE/TIME DICTATED:07/12/171324 SOCIAL WORK MSW:COLEMAN DATE/TIME TRANSCRIBED:07/12/171324 to my read, also several small R cerebellar infarcts Carotid ultrasound 07/13/2017: FINDINGS: 1. On the right: Plaque is present at the carotid bifurcation but velocity measurements are normal and do not suggest a stenosis of greater than 50% diameter reduction in the right ICA. The right ECA demonstrates a mild stenosis with peak systolic velocity of under 200 cm/s. The vertebral artery is patent demonstrating antegrade flow. 2. On the left: Plaque is present at the carotid bifurcation but velocity measurements in the proximal ICA are normal and do not suggest a stenosis of greater than 50% diameter reduction in the left proximal ICA. Velocities in the mid ICA are elevated which may be due to tortuosity The left external carotid artery shows no significant stenosis. The vertebral artery is patent demonstrating antegrade flow IMPRESSION: Plaque is present in the internal carotid arteries but velocity measurements are normal and there is no evidence to suggest a hemodynamically significant stenosis of greater than 50% diameter reduction. DICTATED BY: Luis Tiwari MD DATE/TIME DICTATED:07/13/171126 Assessment/Plan Assessment: At this time it is unclear whether the stroke seen on head CT is old and subclinical, versus subacute and related to her symptoms which occurred 2 days ago. With transient expressive speech difficulties, we should also consider left hemispheric TIA in the differential Recommendations: Echocardiogram, telemetry Brain MRI without contrast Continue dual antiplatelet therapy and statin Consult Acknowledgment - Thank you for your consult request.
--- NOTE | 2017-07-13 11:32 | ULTRASOUND REPORT ---
EXAMINATION: DUPLEX BILATERAL CAROTID ULTRASOUND CLINICAL INFORMATION: Aphasia COMPARISON: None. TECHNIQUE: Duplex bilateral carotid US was performed using real-time ultrasound and Doppler techniques (integrating B-mode 2D vascular images, Doppler spectral analysis and color flow Doppler imaging). These techniques were utilized to interrogate the extracranial carotid and vertebral arteries bilaterally. The degree of stenosis is based off criteria similar to NASCET. FINDINGS: 1. On the right: Plaque is present at the carotid bifurcation but velocity measurements are normal and do not suggest a stenosis of greater than 50% diameter reduction in the right ICA. The right ECA demonstrates a mild stenosis with peak systolic velocity of under 200 cm/s. The vertebral artery is patent demonstrating antegrade flow. 2. On the left: Plaque is present at the carotid bifurcation but velocity measurements in the proximal ICA are normal and do not suggest a stenosis of greater than 50% diameter reduction in the left proximal ICA. Velocities in the mid ICA are elevated which may be due to tortuosity The left external carotid artery shows no significant stenosis. The vertebral artery is patent demonstrating antegrade flow IMPRESSION: Plaque is present in the internal carotid arteries but velocity measurements are normal and there is no evidence to suggest a hemodynamically significant stenosis of greater than 50% diameter reduction.
[2017-07-13 14:23] VITALS: BP 132/70
--- NOTE | 2017-07-13 16:52 | MRI REPORT ---
EXAMINATION: MR BRAIN WITHOUT CONTRAST CLINICAL INFORMATION: Subacute CVA right frontal cortex. Word finding difficulty. Symptoms present for 2 days. Old versus new infarct. COMPARISON: Head CT 07/12/2017. TECHNIQUE: Multiplanar, multisequence imaging of the brain was performed without intravenous contrast. \H\ \N\FINDINGS: There is no evidence of acute infarct, hemorrhage, mass, or extra-axial collection. There is redemonstration of chronic infarct within the right superior frontal gyrus and precentral gyrus within the middle cerebral artery territory. Additional chronic infarcts are present within the bilateral ho radiata, left middle frontal gyrus, and both cerebellar hemispheres. There are patchy foci of T2 prolongation within the bilateral deep and periventricular white matter compatible with mild to moderate small vessel ischemic changes. There is mild diffuse brain parenchymal volume loss with prominence of the ventricles and sulci. There is no evidence of hydrocephalus. The major arterial flow voids are preserved at the skull base. There is mild paranasal sinus mucosal thickening without fluid levels. The extracranial structures otherwise appear normal. There is a probable sebaceous cyst in the right frontal scalp. IMPRESSION: - No acute infarct, hemorrhage, or mass. - Multiple chronic infarcts including in the right frontal lobe, bilateral carotid radiata, left middle frontal gyrus, and both cerebellar hemispheres. - Mild to moderate small vessel ischemic changes and mild diffuse brain parenchymal volume loss.
[2017-07-13 22:06] VITALS: BP 130/80
[2017-07-14 06:40] VITALS: BP 144/84
--- NOTE | 2017-07-14 07:21 | PN- Housestaff ---
Robyn Garland 07/14/17 0720: Subjective Follow-up For: -suspected stroke ruled out. Complaints: no complaints Subjective: I have seen and examined the patient today morning, she seems to be doing good, she has been eating and tolerating it well after passing a swallow eval, she does not have any new complaints to offer today, will anticipate discharge for today. Review of Systems Constitutional: Reports: see HPI. Objective Last 24 Hrs of Vital Signs/I&O Vital Signs Date Time Temp Pulse Resp B/P B/P Pulse O2 O2 Flow FiO2 Mean Ox Delivery Rate 07/14 0640 98.7 84 18 144/84 97 Room Air 07/13 220 98.9 86 16 130/80 96 07/13 1423 98.9 78 18 132/70 97 Room Air Intake & Output 07/14 0800 07/14 0000 07/13 1600 Intake Total 200 400 750 Output Total Balance 200 400 750 Intake, IV 300 Intake, Oral 200 400 450 Patient 76.374 kg Weight Physical Exam General Appearance: Alert, Oriented X3, Cooperative, No Acute Distress Skin: No Rashes, No Breakdown Cardiovascular: Regular Rate, Normal S1, Normal S2, No Murmurs Lungs: Clear to Auscultation, Normal Air Movement Abdomen: Normal Bowel Sounds, Soft, No Tenderness, No Hepatospenomegaly Neurological: Normal Gait, Normal Speech, Strength at 5/5 X4 Ext, Normal Tone, Sensation Intact, Cranial Nerves 3-12 NL, Reflexes 2+ Extremities: No Clubbing, No Cyanosis, No Edema, Normal Pulses Vascular: Normal Pulses Current Medications: Current Medications Sig/Yane Start time Last Medication Dose Route Stop Time Status Admin Aspirin Buffered 81 MG DAILY 07/13 1915 AC 07/13 PO 0803 Atorvastatin Calcium 20 MG 1700 07/13 1700 AC 07/13 PO 1657 Clopidogrel Bisulfate 75 MG DAILY 07/13 1915 AC 07/13 PO 0803 Heparin Sodium 5,000 UNIT Q8 07/12 2200 AC 07/14 (Porcine) SC 0645 Insulin Aspart 0 TIDAC 07/13 1200 AC 07/13 SC 1657 Patient Medication 1 ED ONE ONE 07/13 1630 DC 07/13 Teaching ED 07/13 1631 1657 Sodium Chloride 1,000 ML Q20H 07/12 2215 DC 07/12 IV 2314 Last 24 Hrs of Lab/Vivek Results Last 24 Hrs of Labs/Mics: Laboratory Tests 07/14/17 0658: Sodium Pending, Potassium Pending, Chloride Pending, Carbon Dioxide Pending, Anion Gap Pending, BUN Pending, Creatinine Pending, BUN/Creatinine Ratio Pending , Magnesium Pending 07/13/17 1535: Anion Gap 9, Estimated GFR 40 L, BUN/Creatinine Ratio 30.8 H Lines/Diet/Fluids Restraints: none Assessment/Plan Assessment: Ms. Cabral is a 72-year-old -[place] female came in with chief complain of slurring of speech and weakness in both lower extremities since one day prior to presentation. Past medical history significant for [id number] diabetes mellitus, uncontrolled hypertension, hyperlipidemia, history of cataracts, peripheral neuropathy On presentation she was afebrile, tmax of 97, RR 18, blood pressure was noted to be 172/86 , pulse of 91 month he was 99% saturating on room air. Significant lab work, no white count, H/H of 12.4/36.7, platelet of 281, sodium 142, potassium 5.5, anion gap of 15, BUN/creatinine 34/1.4, glucose was found to be 59, calcium of 10.3, liver function tests within normal limits, troponin less than 0.01. 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 Problem list along with assessment and plan #1 bilateral lower extremity weakness, slurring of speech Possible differentials could be hypoglycemia versus stroke, MRI ruled out any new stroke, carotis dopplers didnot show any significant stenosis, continue neuro check every 4 hours, passed swallow evaluation, tolerated diet well, continue atorvastatin 20 mg daily, Plavix 75 mg daily, ct aspirin ,PT/OT.Touched based with nuerology, we will continue aspirin and plavix for 1 month than can review plavix again whether to continue or just continue aspirin. #2 Acute kidney injury Continue IV hydration, hold antihypertensives, continue to monitor BUN/creatinine. #[address] to new to monitor,treat as indicated,she was found to be hyperkalemic however there were no acute EKG changes, suggest to rechecked one more time as OP. #4 Type 2 diabetes mellitus. Continue NovoLog sliding scale, continue to monitor fingersticks, NovoLog sliding scale for now while holding all antidiabetic medications, will resume antidiabetic medicatinos on discharge. #5 Asymptomatic Hypercalcemia Continue to follow magnesium, phosphorus, PTH and vitamin D level, we'll continue to treat with IV normal saline, her values of calcium were noted to be 9.8 in March 2017 and 10.0 in October 2015 #6 Peripheral Neuropathy : continue gabapentin. Problem List: 1. Stroke 2. Hypertension 3. Hyperkalemia 4. Lung nodule 5. Acute kidney injury 6. Uncontrolled diabetes mellitus Pain Ratin Pain Location: tylenol Pain Goal: Remain pain free Pain Plan: .. Tomorrow's Labs & Rationales: .. Discharge Plan Discharge Disposition: home Stable for Discharge? Yes Anticipated Discharge (Day): today If Discharged Today/In 24 Hrs: CMR done Chayo Palomo MD 07/14/17 1351: Attending MD Review Statement Attending Statement Attending MD Statement: examined this patient, discuss w/resident/PA/TIE WORKER, agreed w/resident/PA/TIE WORKER, discussed with family, reviewed EMR data (avail), discussed with nursing, discussed with case mgmt, reviewed images Attending Assessment/Plan: Patient is doing well. She denies any complaints. Off note she continues to have borderline hyperkalemia with her K of 5.7-5.5 and I suspect she has CKD secondary to diabetes with a GFR of 40. Her MRI showed multiple chronic infarcts likely secondary to vascular disease, I discussed this with the radiologist. Given the hyperkalemia I'm going to stop the GIOVANNA inhibitor and she 'll leave on a higher dose of Norvasc. We also spoke to the neurologist and given that the highest risk of TIA is in the first month after presentation, she will have dual antiplatelet therapy for one month. We spoke to the granddaughter and the patient at length. She's [facility] Medicaid and is going to follow-up with the PCP in [facility]. They understand clearly the chronic infarcts, stopping the GIOVANNA inhibitor and the dual antiplatelet therapy for a month. I'm going to follow-up on her echocardiogram and if okay she'll be discharged with close outpatient follow-up.
[2017-07-14] MEDS ORDERED: ATORVASTATIN CA20 M1 PO ×2 (07:51→11:01)
[2017-07-14] MEDS ORDERED: PLAVIX75 M1 PO ×3 (07:51→15:12)
--- NOTE | 2017-07-14 07:58 | Patient Discharge Instructions ---
Discharge Instructions General Discharge Information You were seen/treated for: speech abnormalities and weak lower extremity Special Instructions: please follow up with your PCP Dr luigi Claire at [place] within one week of discharge. The MRI brain showed chronic old infarcts and no new areas of infarct/damage were seen. please note we are discontinuing one of your hypertension medications Lisinopril due to high pottassim, one of it's side effects. We will continue Amlodipine, which is your home medication. Also note we are discontinuing gabapentin. Your prescriptions have been sent to [facility] at [place], please continue to take medications as prescribed. Diet Continue normal diet: No Recommended Diet: Heart Healthy Acute Coronary Syndrome Inclusion Criteria At DC or during hospital stay patient has or had the following: ACS DIAGNOSIS No Discharge Core Measures Meds if any: Prescribed or Continued at Discharge Meds if any: NOT Prescribed or Continued at Discharge Congestive Heart Failure Inclusion Criteria At DC or during hospital stay patient has or had the following: CHF DIAGNOSIS No Discharge Core Measures Meds if any: Prescribed or Continued at Discharge Meds if any: NOT Prescribed or Continued at Discharge Cerebrovascular accident Inclusion Criteria At DC or during hospital stay patient has or had the following: CVA/TIA Diagnosis No Discharge Core Measures Meds if any: Prescribed or Continued at Discharge Meds if any: NOT Prescribed or Continued at Discharge Venous thromboembolism Inclusion Criteria VTE Diagnosis No VTE Type NONE VTE Confirmed by (Test) NONE Discharge Core Measures - Per Current guidelines, there needs to be overlap - treatment for the first 5 days of Warfarin therapy. - If discharged on Warfarin prior to 5 days of - overlap therapy, the patient will need to be - assessed for post discharge needs including - *Post discharge parental anticoagulation - *Warfarin and/or parental anticoagulation education - *Follow up date to check INR post discharge At least 5 days overlap therapy as Inpatient No Meds if any: Prescribed or Continued at Discharge Note: Overlap Therapy is Warfarin and Anticoagulant Meds if any: NOT Prescribed or Continued at Discharge
[2017-07-14] MEDS ORDERED: AMLODIPINE BESY10 M1 PO ×2 (10:35→11:01)
[2017-07-14] MEDS ORDERED: JANUVIA50 M1 PO (10:43)
[2017-07-14 14:23] VITALS: BP 162/90
--- NOTE | 2017-07-14 15:34 | ECHOCARDIOGRAM REPORT ---
ROSEMARY KHLOE Age: 72 : 1945 Gender: F Exam Date: 07/13/2017 19:51 Exam Location: [address] Ht (in): 66 Wt (lb): 162 BSA: 1.86 BP: 128 / 76 Ordering Physician: Shima Chowdary MD Referring Physician: Shima Chowdary MD Technologist: Sydni Booker [facility] Room Number: 183 Indications: STROKE Rhythm: Sinus Technical Quality: Technically difficult study FINDINGS Left Ventricle Normal size left ventricle. Mild concentric left ventricular hypertrophy. Normal left ventricular ejection fraction visually estimated at >60%. Abnormal relaxation filling pattern of the left ventricle for age (stage 1 diastolic dysfunction). No obvious regional wall motion abnormalities. Right Ventricle Normal right ventricular size and function. Right Atrium Normal right atrial size. Left Atrium Normal left atrial size. Mitral Valve Mild mitral annular calcification. Trace mitral regurgitation. Aortic Valve Mild aortic valve thickening. No aortic stenosis. No aortic regurgitation. Tricuspid Valve Tricuspid valve not well visualized, grossly normal. Mild tricuspid regurgitation. No evidence of pulmonary hypertension. Pulmonic Valve Pulmonic valve not well visualized, grossly normal. Pericardium No pericardial effusion. Great Vessels Normal size aortic root. CONCLUSIONS Normal size left ventricle. Mild concentric left ventricular hypertrophy. Normal left ventricular ejection fraction visually estimated at > 60%. Abnormal relaxation filling pattern of the left ventricle for age (stage 1 diastolic dysfunction). Trace mitral regurgitation. Mild tricuspid regurgitation. Suresh Jackson M.D. (Electronically Signed) Final Date: 14 July 2017 15:33 MEASUREMENTS (Male / Female) Normal Values 2D ECHO LV Diastolic Diameter PLAX 3.4 cm 4.2 - 5.9 / 3.9 - 5.3 cm LV Systolic Diameter PLAX 1.8 cm 2.1 - 4.0 cm LV Fractional Shortening PLAX 47.1 % 25 - 46 % LV Ejection Fraction 2D Teich 79.5 % IVS Diastolic Thickness 1.4 cm LVPW Diastolic Thickness 1.4 cm LV Relative Wall Thickness 0.8 RV Internal Dim ED PLAX 2.1 cm 1.9 - 3.8 cm LVOT Diameter 2.0 cm Aortic Root Diameter 3.3 cm LA Systolic Diameter LX 3.3 cm 3.0 - 4.0 / 2.7 - 3.8 cm LA Volume 36.0 cm 18 - 58 / 22 - 52 cm Ascending Aorta Diameter 3.7 cm DOPPLER AV Peak Velocity 117.0 cm/s AV Peak Gradient 5.5 mmHg AV Mean Velocity 86.5 cm/s AV Mean Gradient 3.0 mmHg AV Velocity Time Integral 22.8 cm LVOT Peak Velocity 105.0 cm/s LVOT Peak Gradient 4.4 mmHg LVOT Mean Velocity 66.9 cm/s LVOT Mean Gradient 2.0 mmHg LVOT Velocity Time Integral 24.8 cm LVOT Stroke Volume 77.9 cm AV Area Cont Eq vti 3.4 cm AV Area Cont Eq pk 2.8 cm MV Peak Velocity 107.0 cm/s MV Peak Gradient 4.6 mmHg MV Mean Velocity 58.4 cm/s MV Mean Gradient 2.0 mmHg Mitral E Point Velocity 52.3 cm/s Mitral A Point Velocity 104.0 cm/s Mitral E to A Ratio 0.5 MV PHT Velocity 99.0 cm/s MV Deceleration Licking 591.0 cm/s MV Pressure Half Time 50.3 ms MV Area PHT 4.4 cm MV Deceleration Time 232.0 ms TR Peak Velocity 197.0 cm/s TR Peak Gradient 15.5 mmHg Right Atrial Pressure 5.0 mmHg Pulmonary Artery Systolic Pressu 20.5 mmHg Right Ventricular Systolic Press 20.5 mmHg PV Peak Velocity 73.5 cm/s PV Peak Gradient 2.2 mmHg PV Mean Velocity 51.1 cm/s PV Mean Gradient 1.0 mmHg PV Velocity Time Integral 11.9 cm LV E' Lateral Velocity 5.8 cm/s Mitral E to LV E' Lateral Ratio 9.1 LV E' Septal Velocity 6.5 cm/s Mitral E to LV E' Septal Ratio 8.0
--- NOTE | 2017-07-14 16:45 | Discharge Summary ---
Visit Information Visit Dates Admission Date: 07/12/17 Discharge Date: 07/14/17 Hospital Course Course Attending Physician: Stacia HARTMAN,Chayo Khanna Primary Care Physician: Patient Has No Primary Care Dr Hospital Course: Ms. Cabral is a 72-year-old -Monegas[place] female came in to [facility] with chief complain of slurring of speech and weakness in both lower extremities since one day prior to presentation. Past medical history significant for ygn-uupvboy-bjblmfoou diabetes mellitus, uncontrolled hypertension, hyperlipidemia, history of cataracts, peripheral neuropathy On presentation she was afebrile, tmax of 97, RR 18, blood pressure was noted to be 172/86 , pulse of 91 month he was 99% saturating on room air. Significant lab work, no white count, H/H of 12.4/36.7, platelet of 281, sodium 142, potassium 5.5, anion gap of 15, BUN/creatinine 34/1.4, glucose was found to be 59, calcium of 10.3, liver function tests within normal limits, troponin less than 0.01. 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 Problem list along with assessment and plan #1 bilateral lower extremity weakness, slurring of speech * Possible differentials that were considered consisted of hypoglycemia versus stroke, MRI ruled out any new stroke, carotis doppler didnot show any significant stenosis,she was monitored on neuro check every 4 hours, she passed swallow evaluation, tolerated diet well,was continued in atorvastatin 20 mg daily, Plavix 75 mg daily, ct aspirin.Physical and occupational therapist was working with her. * After discussion with neurology, aspirin and plavix will be continued for 1 month as this is the time recurrent stroke risk is highest, after that plavix will be reviewed. #2 Acute kidney injury * She was treated with IV hydration, antihypertensives were held and continues to trend towards normal and was close to baseline on discharge day. #3 Hyperkalemia * Patient was monitored and repleted as needed, on day of discharge was mildly elevated,but was stable for discharge. #4 Type 2 diabetes mellitus. * FS were monitored and managed with novoLog sliding scale while holding all antidiabetic medications, antidiabetic medications were resumed on discharge. #5 Asymptomatic Hypercalcemia * Magnesium, phosphorus, PTH and vitamin D level and thyroid levels were found to be within normal limit. her values of calcium were noted to be 9.8 in March 2017 and 10.0 in October 2015. #6 Peripheral Neuropathy : Stable and was managed with Gabapentin. Allergies: Coded Allergies: No Known Allergies (04/09/17) Significant Procedures: PATIENT: KHLOE RILEY PRESENT AGE: 72 PATIENT ACCOUNT NO: [id number] : 46 LOCATION: [facility] ORDERING PHYSICIAN: Marlon DIEHL SERVICE DATE: 07/12/17 EXAM TYPE: CAT - CT HEAD WO IV CONTRAST EXAMINATION: CT HEAD WITHOUT CONTRAST CLINICAL INFORMATION: Dizziness and slurred speech. COMPARISON: None TECHNIQUE: Contiguous axial imaging was performed from the skull base to vertex without intravenous administration of contrast. DLP: 612 mGy-cm FINDINGS: There is no evidence of acute intracranial hemorrhage or territorial infarction. No abnormal mass effect or midline shift is seen. There is diffuse periventricular hypodensity in both cerebral hemispheres suggestive of chronic small vessel ischemic changes. There is moderate size hypodensity in the right frontal lobe consistent with subacute to old infarct. It is best visualized on axial image 19 and 20, series 3. And: Enlarged but symmetrical. Mild prominence of cortical sulci is noted. There is no abnormal attenuation within the brain parenchyma. The osseous structures are normal. There is a right frontal subcutaneous 9 mm soft tissue lesion likely sebaceous cyst. Best visualized image 23, series 3. Tthe mastoid air cells and visualized portions of the paranasal sinuses are well aerated. 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 No acute infarct, bleed, masses or midline shift. Age-related mild cerebral atrophy with chronic small vessel ischemic changes in both cerebral hemispheres. DICTATED BY: Leilani HARTMAN,Jass DATE/TIME DICTATED:07/12/171324 SIGNAL TIMER:COLEMAN DATE/TIME TRANSCRIBED:07/12/171324 SERVICE DATE: 07/12/17 EXAM TYPE: CARD - ECHOCARDIOGRAM KHLOE RILEY Age: 72 : 1945 Gender: F Exam Date: 07/13/2017 19:51 Exam Location: [place] Ht (in): 66 Wt (lb): 162 BSA: 1.86 BP: 128 / 76 Ordering Physician: Shima Chowdary MD Referring Physician: Shima Chowdary MD Technologist: Sydni Booker [facility] Room Number: 183 Indications: STROKE Rhythm: Sinus Technical Quality: Technically difficult study FINDINGS Left Ventricle Normal size left ventricle. Mild concentric left ventricular hypertrophy. Normal left ventricular ejection fraction visually estimated at >60%. Abnormal relaxation filling pattern of the left ventricle for age (stage 1 diastolic dysfunction). No obvious regional wall motion abnormalities. Right Ventricle Normal right ventricular size and function. Right Atrium Normal right atrial size. Left Atrium Normal left atrial size. Mitral Valve Mild mitral annular calcification. Trace mitral regurgitation. Aortic Valve Mild aortic valve thickening. No aortic stenosis. No aortic regurgitation. Tricuspid Valve Tricuspid valve not well visualized, grossly normal. Mild tricuspid regurgitation. No evidence of pulmonary hypertension. Pulmonic Valve Pulmonic valve not well visualized, grossly normal. Pericardium No pericardial effusion. Great Vessels Normal size aortic root. CONCLUSIONS Normal size left ventricle. Mild concentric left ventricular hypertrophy. Normal left ventricular ejection fraction visually estimated at > 60%. Abnormal relaxation filling pattern of the left ventricle for age (stage 1 diastolic dysfunction). Trace mitral regurgitation. Mild tricuspid regurgitation. Suresh Jackson M.D. (Electronically Signed) Final Date: 14 July 2017 15:33 MEASUREMENTS (Male / Female) Normal Values 2D ECHO LV Diastolic Diameter PLAX 3.4 cm 4.2 - 5.9 / 3.9 - 5.3 cm LV Systolic Diameter PLAX 1.8 cm 2.1 - 4.0 cm LV Fractional Shortening PLAX 47.1 % 25 - 46 % LV Ejection Fraction 2D Teich 79.5 % IVS Diastolic Thickness 1.4 cm LVPW Diastolic Thickness 1.4 cm LV Relative Wall Thickness 0.8 RV Internal Dim ED PLAX 2.1 cm 1.9 - 3.8 cm LVOT Diameter 2.0 cm Aortic Root Diameter 3.3 cm LA Systolic Diameter LX 3.3 cm 3.0 - 4.0 / 2.7 - 3.8 cm LA Volume 36.0 cm 18 - 58 / 22 - 52 cm Ascending Aorta Diameter 3.7 cm DOPPLER AV Peak Velocity 117.0 cm/s AV Peak Gradient 5.5 mmHg AV Mean Velocity 86.5 cm/s AV Mean Gradient 3.0 mmHg AV Velocity Time Integral 22.8 cm LVOT Peak Velocity 105.0 cm/s LVOT Peak Gradient 4.4 mmHg LVOT Mean Velocity 66.9 cm/s LVOT Mean Gradient 2.0 mmHg LVOT Velocity Time Integral 24.8 cm LVOT Stroke Volume 77.9 cm AV Area Cont Eq vti 3.4 cm AV Area Cont Eq pk 2.8 cm MV Peak Velocity 107.0 cm/s MV Peak Gradient 4.6 mmHg MV Mean Velocity 58.4 cm/s MV Mean Gradient 2.0 mmHg Mitral E Point Velocity 52.3 cm/s Mitral A Point Velocity 104.0 cm/s Mitral E to A Ratio 0.5 MV PHT Velocity 99.0 cm/s MV Deceleration [place] 591.0 cm/s MV Pressure Half Time 50.3 ms MV Area PHT 4.4 cm MV Deceleration Time 232.0 ms TR Peak Velocity 197.0 cm/s TR Peak Gradient 15.5 mmHg Right Atrial Pressure 5.0 mmHg Pulmonary Artery Systolic Pressu 20.5 mmHg Right Ventricular Systolic Press 20.5 mmHg PV Peak Velocity 73.5 cm/s PV Peak Gradient 2.2 mmHg PV Mean Velocity 51.1 cm/s PV Mean Gradient 1.0 mmHg PV Velocity Time Integral 11.9 cm LV E' Lateral Velocity 5.8 cm/s Mitral E to LV E' Lateral Ratio 9.1 LV E' Septal Velocity 6.5 cm/s Mitral E to LV E' Septal Ratio 8.0 DICTATED BY: Suresh Jackson MD DATE/TIME DICTATED:07/14/171532 SIGNAL TIMER:COLEMAN DATE/TIME TRANSCRIBED:07/14/171532 SERVICE DATE: 07/13/17- EXAM TYPE: MRI - MRI-HEAD W/O HERNY EXAMINATION: MR BRAIN WITHOUT CONTRAST CLINICAL INFORMATION: Subacute CVA right frontal cortex. Word finding difficulty. Symptoms present for 2 days. Old versus new infarct. COMPARISON: Head CT 07/12/2017. TECHNIQUE: Multiplanar, multisequence imaging of the brain was performed without intravenous contrast. \H\ \N\FINDINGS: There is no evidence of acute infarct, hemorrhage, mass, or extra-axial collection. There is redemonstration of chronic infarct within the right superior frontal gyrus and precentral gyrus within the middle cerebral artery territory. Additional chronic infarcts are present within the bilateral ho radiata, left middle frontal gyrus, and both cerebellar hemispheres. There are patchy foci of T2 prolongation within the bilateral deep and periventricular white matter compatible with mild to moderate small vessel ischemic changes. There is mild diffuse brain parenchymal volume loss with prominence of the ventricles and sulci. There is no evidence of hydrocephalus. The major arterial flow voids are preserved at the skull base. There is mild paranasal sinus mucosal thickening without fluid levels. The extracranial structures otherwise appear normal. There is a probable sebaceous cyst in the right frontal scalp. IMPRESSION: - No acute infarct, hemorrhage, or mass. - Multiple chronic infarcts including in the right frontal lobe, bilateral carotid radiata, left middle frontal gyrus, and both cerebellar hemispheres. - Mild to moderate small vessel ischemic changes and mild diffuse brain parenchymal volume loss. SERVICE DATE: 07/13/17 EXAM TYPE: US - [id number] DOPPLER EXAMINATION: DUPLEX BILATERAL CAROTID ULTRASOUND CLINICAL INFORMATION: Aphasia COMPARISON: None. TECHNIQUE: Duplex bilateral carotid US was performed using real-time ultrasound and Doppler techniques (integrating B-mode 2D vascular images, Doppler spectral analysis and color flow Doppler imaging). These techniques were utilized to interrogate the extracranial carotid and vertebral arteries bilaterally. The degree of stenosis is based off criteria similar to NASCET. FINDINGS: 1. On the right: Plaque is present at the carotid bifurcation but velocity measurements are normal and do not suggest a stenosis of greater than 50% diameter reduction in the right ICA. The right ECA demonstrates a mild stenosis with peak systolic velocity of under 200 cm/s. The vertebral artery is patent demonstrating antegrade flow. 2. On the left: Plaque is present at the carotid bifurcation but velocity measurements in the proximal ICA are normal and do not suggest a stenosis of greater than 50% diameter reduction in the left proximal ICA. Velocities in the mid ICA are elevated which may be due to tortuosity The left external carotid artery shows no significant stenosis. The vertebral artery is patent demonstrating antegrade flow IMPRESSION: Plaque is present in the internal carotid arteries but velocity measurements are normal and there is no evidence to suggest a hemodynamically significant stenosis of greater than 50% diameter reduction. Disposition Summary Disposition Principal Diagnosis: #1 bilateral lower extremity weakness, slurring of speech possible TIA ,MRI negative. #2 Acute kidney injury #3 Hyperkalemia Additional Diagnosis: #4 Type 2 diabetes mellitus. #5 Asymptomatic Hypercalcemia #6 Peripheral Neuropathy Discharge Disposition: home or self care Discharge Instructions General Discharge Information Code Status: Full Code Patient's Diet: regular Patient's Activity: as tolerated Follow-Up Instructions/Appts: please follow up with your PCP Dr luigi Claire at [facility] within one week of discharge. The MRI brain showed chronic old infarcts and no new areas of infarct/damage were seen. please note we are discontinuing one of your hypertension medications Lisinopril due to high pottassim, one of it's side effects. We will continue Amlodipine, which is your home medication. Also note we are discontinuing gabapentin. Your prescriptions have been sent to [facility] at [place], please continue to take medications as prescribed. Medications at Discharge Discharge Medications: Stop taking the following medications: Gabapentin (Gabapentin) 300 MG CAPSULE ORAL TAKE AT BEDTIME Qty = 30 Amlodipine Besylate/Benazepril (Amlodipine-Benazepril 5-20 MG) 5 MG-20 MG CAPSULE ORAL DAILY Qty = 30 Continue taking these medications: Omeprazole (Omeprazole) 20 MG CAPSULE.DR 40 Milligram ORAL DAILY BEFORE BREAKFAST Qty = 30 Instructions: . Comments: NOT GIVEN IN HOSPITAL Metformin HCl (Glucophage) 1,000 MG TABLET 1 Tablet ORAL TWICE DAILY Qty = 30 Comments: NOT GIVEN IN HOSPITAL Glimepiride (Glimepiride) 4 MG TABLET 1 Tablet ORAL DAILY Qty = 30 Comments: NOT GIVEN IN HOSPITAL Aspirin (Lo-Dose Aspirin EC) 81 MG TABLET.DR 1 Tablet ORAL DAILY Qty = 30 Comments: Last Taken: 07/14/17 Time: 748 Sitagliptin Phosphate (Januvia) 50 MG TABLET 1 Tablet ORAL DAILY Qty = 30 Comments: NOT GIVEN IN HOSPITAL Start taking the following new medications: Atorvastatin Calcium (Atorvastatin Calcium) 20 MG TABLET 1 Tablet ORAL 5 PM Qty = 90 No Refills Instructions: .. Comments: Last Taken: 07/13/17 Time: 165 Amlodipine Besylate (Amlodipine Besylate) 10 MG TABLET 1 Tablet ORAL DAILY Qty = 30 No Refills Instructions: .. Comments: NOT GIVEN IN HOSPITAL Clopidogrel Bisulfate (Plavix) 75 MG TABLET 1 Tablet ORAL DAILY Qty = 90 No Refills Instructions: .... Comments: Last Taken: 07/14/17 Time: 0749 Copies To: Norbert HARTMAN,Henrietta Cook Attending MD Review Statement Documenting Attending: Stacia HARTMAN,Chayo Khanna
== END 2017-07-14 17:00 | DRG 47 ==
LOC: ERH 11:49 → 1NO 17:13 → ERHI 17:13 → ENRESERV 18:03 → ENTRNSPT 19:53 → EDTRNSPTSTS 19:57 → EDTRNSPT 19:57 → 1NO 20:07 → CMPTRNSPT 20:29 → 1NO 07-14 08:02
PROVIDERS: Emergency Medicine; Internal Medicine Adolescent Medicine
DX: G45.9 Transient cerebral ischemic attack, unspecified (principal); E11.42 Type 2 diabetes mellitus with diabetic polyneuropathy; N17.9 Acute kidney failure, unspecified; E87.5 Hyperkalemia; R47.1 Dysarthria and anarthria; E78.5 Hyperlipidemia, unspecified; I10 Essential (primary) hypertension; K21.9 Gastro-esophageal reflux disease without esophagitis; Z79.84 Long term (current) use of oral hypoglycemic drugs
CPT/HCPCS: 1NP; 70551; 36592; 82436; 93005; 93010; 93306; 97116-GO; 97161-GP; J1644

== ENCOUNTER 2017-08-02 19:34 | Inpatient (IN) | payer OTHER ==
[~2017-08-02] VITALS: Ht 167.6 cm; Wt 74.4 kg
[~2017-08-02 19:34] MED LIST changes: +AMLODIPINE BESY10 M1 PO; +AMLODIPINE-BEN1 EAC2 PO; +ATORVASTATIN CA20 M1 PO; +GABAPENTIN300 M2 PO; +GLIMEPIRIDE4 M1 PO; +JANUVIA50 M1 PO; +LO-DOSE ASPIRIN81 MG PO; +PLAVIX75 M1 PO
--- NOTE | 2017-08-02 19:43 | ED GENERAL ADULT ---
See Addendum History of Present Illness General Chief Complaint: General Adult Stated Complaint: HYPOGLYCEMIA Source: patient, family Exam Limitations: poor historian Vital Signs & Intake/Output Vital Signs & Intake/Output Vital Signs Date Time Temp Pulse Resp B/P B/P Pulse O2 O2 Flow FiO2 Mean Ox Delivery Rate 08/02 2148 98.2 82 16 142/80 99 Room Air 08/02 2125 84 16 180/77 99 Room Air 08/02 2100 Room Air 08/03 1939 97.4 69 16 194/90 100 Room Air Allergies Coded Allergies: No Known Allergies (04/09/17) Reconcile Medications Amlodipine Besylate 10 MG TABLET 1 TAB PO DAILY high bp .. Aspirin (Lo-Dose Aspirin EC) 81 MG TABLET.DR 1 TAB PO DAILY HEART/BLOOD ( Reported) Atorvastatin Calcium 20 MG TABLET 1 TAB PO 1700 STROKE .. Clopidogrel Bisulfate (Plavix) 75 MG TABLET 1 TAB PO DAILY STROKE .... Glimepiride 4 MG TABLET 1 TAB PO DAILY DM (Reported) Metformin HCl (Glucophage) 1,000 MG TABLET 1 TAB PO BID diabetes Omeprazole 20 MG CAPSULE.DR 40 MG PO DAILY [facility] . Sitagliptin Phosphate (Januvia) 50 MG TABLET 1 TAB PO DAILY dm (Reported) Triage Nurses Notes Reviewed? yes Onset: Abrupt Duration: hour(s): Timing: recent history HPI: 08/02/17 9:36 PM 72-year-old female presents to the emergency department status post episode of hypoglycemia. According to the patient she did have dinner tonight. She did take her metformin tablet this morning. She does not take insulin. Her sugar by EMS was 36. Currently she denies any complaints. No chest pain or abdominal pain. Past History Medical History Any Pertinent Medical History? 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 No Review of Systems Review of Systems Constitutional: Denies: fever. EENTM: Reports: no symptoms. Respiratory: Denies: short of breath. Cardiovascular: Denies: chest pain. GI: Denies: abdominal pain. Genitourinary: Reports: no symptoms. Musculoskeletal: Reports: no symptoms. Skin: Reports: no symptoms. Neurological/Psychological: Reports: see HPI. Hematologic/Endocrine: Reports: no symptoms. Immunologic/Allergic: Reports: no symptoms. Physical Exam Physical Exam General Appearance: alert, awake, anxious, mild distress Head: atraumatic, normal appearance Eyes: Bilateral: normal appearance, PERRL, EOMI. Ears, Nose, Throat: normal pharynx, normal ENT inspection Neck: normal inspection, supple Respiratory: normal breath sounds, chest non-tender, no respiratory distress Cardiovascular: regular rate/rhythm Peripheral Pulses: 4+ radial (R), 4+ radial (L) Gastrointestinal: non-tender Back: normal range of motion Extremities: normal inspection, normal range of motion Neurologic/Psych: no motor/sensory deficits, awake, alert, oriented x 3 Skin: intact, normal color, warm/dry Core Measures ACS in differential dx? No CVA/TIA Diagnosis: No Sepsis Present: No Sepsis Focused Exam Completed? No Progress Differential Diagnoses I considered the following diagnoses in my evaluation of the patient: [ Hypoglycemia, adverse drug reaction, electrolyte derangement] Plan of Care: Orders Procedure Date/time Status Heart Healthy Diet 08/03 B Active VITAL CAPACITY MONITORING 08/[address] in observation 08/02 2222 Active Patient Data 08/02 2222 Active FingerStick- Glucose 08/02 2222 Active Code Status 08/02 2222 Active Saline Lock 08/02 2010 Active TROPONIN LEVEL 08/02 2010 Complete COMPREHENSIVE METABOLIC PANEL 08/02 2010 Complete CBC WITHOUT DIFFERENTIAL 08/02 2010 Complete EKG 08/02 2010 Active Laboratory Tests 08/02/17 2046: Anion Gap 15, Estimated GFR 40 L, BUN/Creatinine Ratio 33.1 H, Glucose 75, Calcium 10.1, Total Bilirubin 0.2, AST 24, ALT 50, Alkaline Phosphatase 69, Troponin I < 0.01, Total Protein 7.6, Albumin 4.2, Globulin 3.4, Albumin/ Globulin Ratio 1.2, CBC w Diff NO MAN DIFF REQ, RBC 4.36, MCV 81.2, MCH 27.0, MCHC 33.3, RDW 14.2, MPV 8.7, Gran % 83.4 H, Lymphocytes % 14.1 L, Monocytes % 2.1, Eosinophils % 0.3, Basophils % 0.1, Absolute Granulocytes 5.7, Absolute Lymphocytes 1.0 L, Absolute Monocytes 0.1, Absolute Eosinophils 0, Absolute Basophils 0 Initial ED EKG: NSR, nonspecific ST T wave chg Prior EKG: unchanged Departure Departure Disposition: STILL A PATIENT Condition: Stable Clinical Impression Primary Impression: Hypoglycemia Referrals: Patient Has No Primary Care Dr Departure Forms: Customer Survey General Discharge Information Observation Note Spoke With: Waldo Church DO Physician Advisor Notified: WALDO CHURCH DO Place Patient In: ED Observation Rationale for Observation: My rational for observation is as follows [she needs to be placed in ED observation for fingersticks every 4 hours and observation for hypoglycemia]. Critical Care Note Critical Care Note Critical Care Time: non-applicable ED Attending Observation Initial Observation Note: I have seen and personally examined KHLOE RILEY on 08/02/17 at 2225. I agree with the current emergency department documentation. The disposition (admission or discharge) is uncertain at this time, she needs a period of observation for the following reason(s): [Monitoring of hypoglycemia and observation for the same] The ED Nurse caring for this patient has been personally informed as to what the patient is being observed for.
[2017-08-02 20:59] LABS: ABSOLUTE BASOPHIL COUNT 0 /CUMM (0.0-0.2); ABSOLUTE EOSINOPHIL COUNT 0 /CUMM (0.0-0.7); ABSOLUTE GRANULOCYTE CT 5.7 /CUMM (1.4-6.5); ABSOLUTE MONOCYTE COUNT 0.1 /CUMM (0.10-0.60); BASOPHIL % 0.1 % (0.0-2.0); EOSINOPHIL % 0.3 % (0-5); HEMATOCRIT 35.5 % (37-47); MEAN CORPUSCULAR HGB CONC 33.3 G/DL (33.0-37.0); MEAN CORPUSCULAR VOLUME 81.2 FL (81.0-99.0); MEAN PLATELET VOLUME 8.7 FL (7.4-10.4); PLATELET COUNT 214 /CUMM (130-400); RBC DISTRIBUTION WIDTH 14.2 % (11.5-14.5); RED BLOOD CELL CT 4.36 /CUMM (4.20-5.40); WHITE BLOOD CELL COUNT 6.9 /CUMM (4.8-10.8)
[2017-08-02 21:33] LABS: GRANULOCYTE % 83.4 % (42.2-75.2)
[2017-08-02] MEDS ORDERED: OMEPRAZOLE40 M1 PO (22:41)
[2017-08-02] MEDS ORDERED: JANUVIA100 M1 PO (22:42)
[2017-08-02] MEDS ORDERED: METOPROLOL-HCT1 EAC1 PO (22:49)
--- NOTE | 2017-08-03 02:06 | History & Physical ---
Jeremy Garcia MD 08/03/17 0205: General Information and HPI MD Statement: I have seen and personally examined KHLOE RILEY and documented this H&P. The patient is a 72 year old F who presented with a patient stated chief complaint of [hypoglycemia]. Source of Information: patient, old records Exam Limitations: poor historian History of Present Illness: Patient is a 72-year-old female with a PMH significant for msb-wcnwbow-tsavsujex diabetes mellitus, HTN, hyperlipidemia, cataracts, recent admission [facility] for suspected TIA or possible neurologic deficit secondary to hyperglycemia, who was brought in by ambulance due to hypoglycemia. Patient reports that she was in her usual state of health this morning, ate a regular breakfast and lunch, and at approximately 1400 on the day of admission she dozed off while leaning on a railing outside unintentionally. She was able to maximally half an hour later but continued to feel drowsy, she then laid down and lost consciousness, she was unable to be aroused by her grandchildren and at that point they contacted her neighbor called EMS. Per EMS the initial glucose reading was 33. She was given IV dextrose in the field and brought to the ED. She recalls being tremulous while EMS transported her. Patient denies feeling any diaphoresis, palpitations, lightheadedness, nausea, vomiting leading up to these events. After her recent discharge her PCP recommended increasing her sitagliptin from 50 mg daily to 100 mg however she had not changed yet as she still had 50 mg tabs remaining and will was instructed to finish those prior to starting the 100 mg tabs. Allergies/Medications Allergies: Coded Allergies: No Known Allergies (04/09/17) Home Med list Amlodipine Besylate 10 MG TABLET 1 TAB PO DAILY high bp .. Aspirin (Lo-Dose Aspirin EC) 81 MG TABLET.DR 1 TAB PO DAILY HEART/BLOOD ( Reported) Atorvastatin Calcium 20 MG TABLET 1 TAB PO 1700 STROKE .. Clopidogrel Bisulfate (Plavix) 75 MG TABLET 1 TAB PO DAILY STROKE .... Glimepiride 4 MG TABLET 1 TAB PO DAILY DM (Reported) Metformin HCl (Glucophage) 1,000 MG TABLET 1 TAB PO BID diabetes Metoprolol/Hydrochlorothiazide (Metoprolol-Hctz 50-25 MG Tab) 50 MG-25 MG TABLET 1 TAB PO DAILY HTN (Reported) Omeprazole 40 MG CAPSULE.DR 1 CAP PO DAILY STOMACH (Reported) Sitagliptin Phosphate (Januvia) 100 MG TABLET 1 TAB PO DAILY DIABETES ( Reported) Past History Travel History Traveled to [place] past 21 day No Medical History Neurological: migraine, peripheral neuropathy EENT: NONE, cataracts Cardiovascular: hyperlipidemia Respiratory: NONE Gastrointestinal: NONE, GERD Hepatic: NONE Renal: MCKENNA Musculoskeletal: NONE Psychiatric: NONE Endocrine: diabetes Blood Disorders: NONE Cancer(s): NONE SILK PRINTER/Reproductive: NONE History of MRSA: No History of VRE: No History of CDIFF: No Surgical History Surgical History: non-contributory Past Family/Social History Family History Relations & Conditions if any Relation not specified for: *No pertinent family history Psychosocial History Where do you live? Home Who Do You Live With? child Services at Home: None Primary Language: Irish Smoking Status: Former Smoker ETOH Use: denies use Illicit Drug Use: denies illicit drug use Functional Ability Ambulation: independent Review of Systems Review of Systems Constitutional: Denies: chills, fever, malaise. EENTM: Denies: blurred vision, double vision, visual changes. Cardiovascular: Denies: chest pain, palpitations, syncope. Respiratory: Reports: short of breath. Denies: cough, wheezing. GI: Denies: abdominal pain, melena, nausea, vomiting. Genitourinary: Denies: dysuria, frequency, hematuria. Musculoskeletal: Reports: no symptoms. Skin: Reports: no symptoms. Exam & Diagnostic Data Last 24 Hrs of Vital Signs/I&O Vital Signs Date Time Temp Pulse Resp B/P B/P Pulse O2 O2 Flow FiO2 Mean Ox Delivery Rate 08/03 0218 98.1 88 18 132/63 97 Room Air 08/02 2356 98.3 77 18 116/59 98 Room Air 08/02 2149 98.2 82 16 142/80 99 Room Air 08/02 2125 84 16 180/77 99 Room Air 08/02 2100 Room Air 08/02 1940 97.4 69 16 194/90 100 Room Air Intake & Output 08/03 0800 08/03 0000 08/02 1600 Intake Total Output Total 400 Balance -400 Number 3 Bowel Movements Output, Urine 400 Patient 165 lb Weight Weight Reported by Patient Measurement Method Physical Exam General Appearance Alert, Oriented X3, Cooperative, No Acute Distress Skin Temp/Moisture Exam: Warm/Dry Cardiovascular Regular Rate, Normal S1, Normal S2 Lungs Clear to Auscultation, Normal Air Movement Abdomen Normal Bowel Sounds, Soft, No Tenderness Neurological Normal Speech, Strength at 5/5 X4 Ext, Normal Tone, Sensation Intact, Cranial Nerves 3-12 NL Last 24 Hrs of Labs/Vivek: Laboratory Tests 08/02/172045: Anion Gap 15, Estimated GFR 40 L, BUN/Creatinine Ratio 33.1 H, Glucose 75, Calcium 10.1, Total Bilirubin 0.2, AST 24, ALT 50, Alkaline Phosphatase 69, Troponin I < 0.01, Total Protein 7.6, Albumin 4.2, Globulin 3.4, Albumin/ Globulin Ratio 1.2, CBC w Diff NO MAN DIFF REQ, RBC 4.36, MCV 81.2, MCH 27.0, MCHC 33.3, RDW 14.2, MPV 8.7, Gran % 83.4 H, Lymphocytes % 14.1 L, Monocytes % 2.1, Eosinophils % 0.3, Basophils % 0.1, Absolute Granulocytes 5.7, Absolute Lymphocytes 1.0 L, Absolute Monocytes 0.1, Absolute Eosinophils 0, Absolute Basophils 0 Diagnostic Data EKG Results sinus rhythm HR 70, QTc 415 Assessment/Plan Assessment: Patient is a 72-year-old female with a PMH significant for zmq-hzngjoq-[id number] diabetes mellitus, HTN, hyperlipidemia, CKD stage III, Cataracts, recent admission [facility] for suspected TIA or possible neurologic deficit secondary to hyperglycemia, who was brought in by ambulance due to hypoglycemia. In the field her glucose was 33 but improved with IV dextrose. While in the ED her glucose did not improve satisfactorily and the decision was to admit the patient. Vital signs on admission: T 97.4, P 69, RR 16, BP 194/90 (came down to 142/80), pulse ox 100% on room air Labs: WBC 6.9, H/H 11.8/35.5, platelets 214, sodium 139, potassium 5.5, chloride 104, CO2 20, BUN 43, creatinine 1.3, glucose 75 Problem list #Hypoglycemia, poorly controlled diabetes mellitus #Hypertensive urgency, now resolved #Mild hyperkalemia #Chronic medical problems including CKD stage III, hyperlipidemia, hypertension Plan -Admit to general medicine -D5NS with serial fingersticks -Hold p.o. diabetic medications -Consider endocrinology consult for diabetic medication recommendations -Neurochecks -Repeat BMP in a.m., will hold off intervention to bring down potassium at this time, however if remains elevated or increases would give 1 dose of Kayexalate Diet: Heart healthy diet, change to consistent carbohydrate when blood sugar improves DVT prophylaxis: Subcutaneous heparin, Alps CODE STATUS: Full code As Ranked By This Provider Problem List: 1. Hypoglycemia 2. Hypertensive urgency 3. Hyperkalemia Core Measures/Misc (10/30) Acute Coronary Syndrome ACS Diagnosis: No Congestive Heart Failure Congestive Heart Failure Diagnosis No Cerebrovascular Accident CVA/TIA Diagnosis: No VTE (View Protocol) VTE Risk Factors Age>40 No Mechanical VTE Prophylaxis d/t N/A MechProphylax Ordered No VTE Pharm Prophylaxis d/t NA PharmProphylax ordered Sepsis (View protocol) Sepsis Present: No If YES complete Sepsis Event Note If YES complete Sepsis Event Note Maryanne Groves MD 08/03/17 0225: Core Measures/Misc (10/30) Sepsis (View protocol) If YES complete Sepsis Event Note If YES complete Sepsis Event Note Attending MD Review Statement Attending Statement Attending MD Statement: examined this patient, discuss w/resident/PA/PRINCIPLE SOFTWARE ENGINEER, agreed w/resident/PA/PRINCIPLE SOFTWARE ENGINEER, reviewed EMR data (avail) Attending Assessment/Plan: 72F PMH T2DM, HTN, recent admission for weakness and slurred speech with negative MRI and workup for stroke thought potentially to be due to hypoglycemia , brought in today for weakness, found to be hypoglycemic to 36 by EMS, given D50 in the field with improvement, then decreased to 70 in ER despite second round of D50. Currently patient has no complaints other than weakness and fatigue. She has no neurological deficit and has normal neuro exam. She takes Januvia, Metformin 1g BID, Glimeperide 4mg for her DM. She has had normal meals today. EKG NSR, labs show only creatinine 1.5 with GFR 40 which is her baseline. Plan: Admit to general medicine, D5 NS, frequent fingersticks, discontinue all PO diabetes medications, can start sliding scale insulin if hyperglycemic, neuro checks, DVT PPx. ClintonMe johanhak 08/03/17 0242: Core Measures/Misc (10/30) Sepsis (View protocol) If YES complete Sepsis Event Note If YES complete Sepsis Event Note Resident Review Statement Other Findings: Patient is 72 year old female with PMh as above was brought by ambulance for hypoglycemia of 35. Patient states that arpund 2 pm, she felt very drowsy and slept outside on the porch while she was sitting there. She was woken up by family members at that time and later patient states that she passed out while she was wtaching news on the couch. The EMS was called at that time and patient remembers that she was shaking as she was being transfered to the EMS bed. Patient does not remember for how long she passed out and it was not witnessed. She denies any tongue bites or bladder accident. Patient does not routinely monitor her BS at home, follows up with a PCP in [place] and was recently discharged from the hospital on 07/14/17 after being admitted for a tia/stroke. Of note patient takes meformin 100 bid, 4 mg of glimipride and 50 mg of sitagliptin for her diabetes. She says that post discharge, she followed up with PCP who increased her sitagliptin to 100 mg daily that she was due to start from tomorrow. Patient however reports that she was taking only 1 pill of 50 mg sitagliptin untill now and had a proper breakfast and lunch today before her symptoms started. Labs and vitals as above. Will admit the patient to GM floor and monitor her closely for her Blood sugars, will d/c her oral antidiabetic medications who are probably causing her hypoglycemia. Will start her on SS and she will benefit from endo eval in am for management of her blood sugars. Patient has CKD with baseline creatinine around 1.3, will continue to monitor. The EKG did have hyperkalemic changes, will repeat serum potassium in along with EKG to monitor. Patient had one episode of loose stool in ER, will continue to monitor DVT ppx SC heprin Patient is full code.
[2017-08-03 05:00] VITALS: BP 152/68
[2017-08-03 08:37] LABS: ABSOLUTE BASOPHIL COUNT 0 /CUMM (0.0-0.2); ABSOLUTE EOSINOPHIL COUNT 0 /CUMM (0.0-0.7); ABSOLUTE LYMPH COUNT 1.3 /CUMM (1.2-3.4); ABSOLUTE MONOCYTE COUNT 0.4 /CUMM (0.10-0.60); BASOPHIL % 0.3 % (0.0-2.0); EOSINOPHIL % 0.5 % (0-5); GRANULOCYTE % 69.2 % (42.2-75.2); HEMATOCRIT 31.2 % (37-47); MEAN CORPUSCULAR HGB 27.3 PG (27.0-31.0); MEAN CORPUSCULAR HGB CONC 33.8 G/DL (33.0-37.0); MEAN CORPUSCULAR VOLUME 80.9 FL (81.0-99.0); MEAN PLATELET VOLUME 9.3 FL (7.4-10.4); PLATELET COUNT 210 /CUMM (130-400); RBC DISTRIBUTION WIDTH 14.5 % (11.5-14.5); RED BLOOD CELL CT 3.86 /CUMM (4.20-5.40); WHITE BLOOD CELL COUNT 5.8 /CUMM (4.8-10.8)
--- NOTE | 2017-08-03 09:27 | Cons- Endocrinology ---
General Information and HPI Consulting Request Date of Consult: 08/03/17 Requested By: medical team Reason for Consult: Hypoglycemia Source of Information: patient, old records Exam Limitations: no limitations History of Present Illness: This 72-year-old woman with a known history of diabetes type 2 on glimepiride and metformin at home was brought in by ambulance. Her sugar was 33 in the field in which she received some 50% glucose. She apparently became unresponsive while watching TV in the evening at home. Her grandchildren got the neighbor who finally called the ambulance. Allergies/Medications Allergies: Coded Allergies: No Known Allergies (04/09/17) Home Med List: Amlodipine Besylate 10 MG TABLET 1 TAB PO DAILY high bp .. Aspirin (Lo-Dose Aspirin EC) 81 MG TABLET.DR 1 TAB PO DAILY HEART/BLOOD ( Reported) Atorvastatin Calcium 20 MG TABLET 1 TAB PO 1700 STROKE .. Clopidogrel Bisulfate (Plavix) 75 MG TABLET 1 TAB PO DAILY STROKE .... Glimepiride 4 MG TABLET 1 TAB PO DAILY DM (Reported) Metformin HCl (Glucophage) 1,000 MG TABLET 1 TAB PO BID diabetes Metoprolol/Hydrochlorothiazide (Metoprolol-Hctz 50-25 MG Tab) 50 MG-25 MG TABLET 1 TAB PO DAILY HTN (Reported) Omeprazole 40 MG CAPSULE.DR 1 CAP PO DAILY STOMACH (Reported) Sitagliptin Phosphate (Januvia) 100 MG TABLET 1 TAB PO DAILY DIABETES ( Reported) Past History Travel History Traveled to [place] past 21 day No Medical History Blood Transfusion Hx: No Neurological: migraine, peripheral neuropathy EENT: cataracts Cardiovascular: hypertension, hyperlipidemia Respiratory: NONE Gastrointestinal: GERD Hepatic: NONE Renal: MCKENNA Musculoskeletal: NONE Psychiatric: NONE Endocrine: diabetes Blood Disorders: NONE Cancer(s): NONE PULPWOOD DEALER/Reproductive: NONE Surgical History Surgical History: non-contributory Family History Relations & Conditions If Any: Relation not specified for: *No pertinent family history Psychosocial History Where Do You Live? Home Who Do You Live With? child Services at Home: None Primary Language: Latvian Smoking Status: Never Smoked ETOH Use: denies use Illicit Drug Use: denies illicit drug use Functional Ability Ambulation: independent Exam & Diagnostic Data Last 24 Hrs of Vital Signs/I&O Vital Signs Date Time Temp Pulse Resp B/P B/P Pulse O2 O2 Flow FiO2 Mean Ox Delivery Rate 08/03 0832 75 152/68 08/03 0831 75 152/68 08/03 0500 98.4 75 18 152/68 98 Room Air 08/03 0218 98.1 88 18 132/63 97 Room Air 08/02 2356 98.3 77 18 116/59 98 Room Air 08/02 2149 98.2 82 16 142/80 99 Room Air 08/025 84 16 180/77 99 Room Air 08/02 2100 Room Air 08/02 1940 97.4 69 16 194/90 100 Room Air Intake & Output 08/03 1600 08/03 0800 08/03 0000 Intake Total 700 Output Total 400 Balance 300 Intake, IV 600 Intake, Oral 100 Number 6 Bowel Movements Output, Urine 400 Patient 164 lb 165 lb Weight Weight Reported by Patient Reported by Patient Measurement Method Vital Signs Date Time Temp Pulse Resp B/P B/P Pulse O2 O2 Flow FiO2 Mean Ox Delivery Rate 08/03 0832 75 152/68 08/03 0831 75 152/68 08/03 0500 98.4 75 18 152/68 98 Room Air 08/03 0218 98.1 88 18 132/63 97 Room Air 08/02 2356 98.3 77 18 116/59 98 Room Air 08/02 2149 98.2 82 16 142/80 99 Room Air 08/025 84 16 180/77 99 Room Air 08/02 2100 Room Air 08/02 1940 97.4 69 16 194/90 100 Room Air Intake & Output 08/03 1600 08/03 0800 08/03 0000 Intake Total 700 Output Total 400 Balance 300 Intake, IV 600 Intake, Oral 100 Number 6 Bowel Movements Output, Urine 400 Patient 164 lb 165 lb Weight Weight Reported by Patient Reported by Patient Measurement Method Physical Exam General Appearance: alert, awake Neck: normal inspection Cardiovascular: regular rate/rhythm Gastrointestinal: normal bowel sounds, soft Extremities: normal inspection Labs/Vivek Results: Laboratory Tests 08/0310 6 Chemistry Sodium (137 - 145 mmol/L) Pending 139 Potassium (3.5 - 5.1 mmol/L) Pending 5.5 H Chloride (98 - 107 mmol/L) Pending 104 Carbon Dioxide (22 - 30 mmol/L) Pending 20 L Anion Gap (5 - 16) Pending 15 BUN (7 - 17 mg/dL) Pending 43 H Creatinine (0.5 - 1.0 mg/dL) Pending 1.3 H Estimated GFR (>60 ml/min) 40 L BUN/Creatinine Ratio (7 - 25 %) Pending 33.1 H Glucose (65 - 99 mg/dL) 75 Calcium (8.4 - 10.2 mg/dL) 10.1 Total Bilirubin (0.2 - 1.3 mg/dL) 0.2 AST (14 - 36 U/L) 24 ALT (9 - 52 U/L) 50 Alkaline Phosphatase (<127 U/L) 69 Troponin I (< 0.11 ng/ml) < 0.01 Total Protein (6.3 - 8.2 g/dL) 7.6 Albumin (3.5 - 5.0 g/dL) 4.2 Globulin (1.9 - 4.2 gm/dL) 3.4 Albumin/Globulin Ratio (1.1 - 2.2 %) 1.2 Hematology CBC w Diff NO MAN DIFF REQ NO MAN DIFF REQ WBC (4.8 - 10.8 /CUMM) 5.8 6.9 RBC (4.20 - 5.40 /CUMM) 3.86 L 4.36 Hgb (12.0 - 16.0 G/DL) 10.5 L 11.8 L Hct (37 - 47 %) 31.2 L 35.5 L MCV (81.0 - 99.0 FL) 80.9 L 81.2 MCH (27.0 - 31.0 PG) 27.3 27.0 MCHC (33.0 - 37.0 G/DL) 33.8 33.3 RDW (11.5 - 14.5 %) 14.5 14.2 Plt Count (130 - 400 /CUMM) 210 214 MPV (7.4 - 10.4 FL) 9.3 8.7 Gran % (42.2 - 75.2 %) 69.2 83.4 H Lymphocytes % (20.5 - 51.1 %) 22.8 14.1 L Monocytes % (1.7 - 9.3 %) 7.2 2.1 Eosinophils % (0 - 5 %) 0.5 0.3 Basophils % (0.0 - 2.0 %) 0.3 0.1 Absolute Granulocytes (1.4 - 6.5 /CUMM) 4.0 5.7 Absolute Lymphocytes (1.2 - 3.4 /CUMM) 1.3 1.0 L Absolute Monocytes (0.10 - 0.60 /CUMM) 0.4 0.1 Absolute Eosinophils (0.0 - 0.7 /CUMM) 0 0 Absolute Basophils (0.0 - 0.2 /CUMM) 0 0 Assessment/Plan Assessment/Plan This 72-year-old woman presents with hypoglycemia undoubtedly due to glimeperide. We need to discontinue glimepiride. It is okay to restart her on metformin tomorrow morning. The patient is presently on D5 half-normal saline and she did eat breakfast this morning. Her glucose this morning before breakfast was 94. We may be able to discontinue the IV fluids later today and continue to monitor her sugars.. I would begin metformin tomorrow a.m. and also begin pioglitazone 30 mg daily which does not cause hypoglycemia. It takes 2-3 weeks to get the full effects of pioglitazone. Consult Acknowledgment - Thank you for your consult request.
--- NOTE | 2017-08-03 11:52 | PN- Att Addend ---
Attending Addendum Attending Brief Note Patient seen and examined. Admitted overnight with hypoglycemia. Currently resting comfortably not in any acute distress. Blood glucose levels this morning is in the 90s while on dextrose infusion. He is alert oriented 3. She is conversant appropriately. She reports but generally her appetite is not great. She has been compliant with her oral hypoglycemic medications at home and not been taking more than prescribed. Review of records show that patient was hospitalized in March with complaints of abdominal discomfort and dizziness. She was found to be hypoglycemic. It was reported that she was noncompliant with her medication therapy at that time. She was initially started on insulin during the hospital stay and discharged home on a higher dose of metformin in addition to starting the patient on glimepiride. She was hospitalized at the end of June into the early days of July after presenting with weakness of both lower extremities and difficulty speaking. Neuroimaging was negative for stroke. She was noted to be hypoglycemic at the time of presentation with glucose level of 59. She had no further hypoglycemic episodes. The working diagnosis at that time however was transient ischemic attack and she was discharged home on the same oral hypoglycemic regimen. She returns overnight after hypoglycemic episode with a blood glucose level of 33 as reported by EMS. Her hypoglycemia has likely been brought on by her glimepiride. It is noted that she is on significantly high dose of metformin for her renal disease. Vital Signs Date Time Temp Pulse Resp B/P B/P Pulse O2 O2 Flow FiO2 Mean Ox Delivery Rate 08/03 0832 75 152/68 08/03 0831 75 152/68 08/03 0500 98.4 75 18 152/68 98 Room Air 08/03 0218 98.1 88 18 132/63 97 Room Air 08/02 2356 98.3 77 18 116/59 98 Room Air 08/02 2149 98.2 82 16 142/80 99 Room Air 08/02 2125 84 16 180/77 99 Room Air 08/02 2100 Room Air 08/02 1940 97.4 69 16 194/90 100 Room Air General appearance: Well-developed and not in any acute distress. HEENT: Anicteric, no pallor, pupils equal and reactive. Neck: Supple with no jugular venous distention. Heart: S1-S2 regular with no audible murmur. Lungs: Adequate and symmetric air entry bilaterally with no added sounds. Abdomen: Nondistended with normal bowel sounds. Soft, nontender with no palpable masses. Extremities: No pedal edema. No cyanosis. Skin: Intact Laboratory Tests 08/03/17 0610: Anion Gap 13, Estimated GFR 37 L, BUN/Creatinine Ratio 30.0 H, CBC w Diff NO MAN DIFF REQ, RBC 3.86 L, MCV 80.9 L, MCH 27.3, MCHC 33.8, RDW 14.5, MPV 9.3, Gran % 69.2, Lymphocytes % 22.8, Monocytes % 7.2, Eosinophils % 0.5, Basophils % 0.3, Absolute Granulocytes 4.0, Absolute Lymphocytes 1.3, Absolute Monocytes 0.4 , Absolute Eosinophils 0, Absolute Basophils 0 08/02/172045: Anion Gap 15, Estimated GFR 40 L, BUN/Creatinine Ratio 33.1 H, Glucose 75, Calcium 10.1, Total Bilirubin 0.2, AST 24, ALT 50, Alkaline Phosphatase 69, Troponin I < 0.01, Total Protein 7.6, Albumin 4.2, Globulin 3.4, Albumin/ Globulin Ratio 1.2, CBC w Diff NO MAN DIFF REQ, RBC 4.36, MCV 81.2, MCH 27.0, MCHC 33.3, RDW 14.2, MPV 8.7, Gran % 83.4 H, Lymphocytes % 14.1 L, Monocytes % 2.1, Eosinophils % 0.3, Basophils % 0.1, Absolute Granulocytes 5.7, Absolute Lymphocytes 1.0 L, Absolute Monocytes 0.1, Absolute Eosinophils 0, Absolute Basophils 0 Problems: 1. Hypoglycemia; likely medication induced. 2. Peq-dqqducv-xxxuvlqmd diabetes mellitus. 3. Hypertension 4. Lack of medical insurance. 5. Chronic kidney disease stage III 4. Chronic anemia Plan: -Discontinue IV fluids. Encourage oral intake. -Monitor patient off hypoglycemic medications for today. -Resume metformin in a.m. given her renal insufficiency would recommend starting her metformin at 500 mg twice daily. -Her hemoglobin A1c 7.9. Given her age and episode of hypoglycemia would recommend avoiding overtly aggressive control of blood glucose levels. Follow- up with the endocrinology service regarding monitoring glucose levels on metformin alone and holding off addition of any other hypoglycemic agents. -Continue metoprolol, hydrochlorothiazide and Norvasc for blood pressure control. Monitor closely. -Patient to follow-up with the financial service department regarding insurance coverage. -Resume oral hypoglycemic medications tomorrow and monitor response to therapy. Anticipate discharge sometime over the weekend. -Avoid nephrotoxic medications. -Patient has chronic microcytic anemia. Anemia workup in March showed normal iron levels but elevated ferritin. Check stool guaiac. Confirm if patient has had colonoscopy screening in the past.
[2017-08-03] MEDS ORDERED: ACTOS30 M1 PO (14:00)
[2017-08-03] MEDS ORDERED: GLUCOPHAGE500 M1 PO (14:00)
--- NOTE | 2017-08-03 14:01 | Patient Discharge Instructions ---
Discharge Instructions General Discharge Information You were seen/treated for: HYPOGLYCEMIA Diet Continue normal diet: No Recommended Diet: Diabetic Acute Coronary Syndrome Inclusion Criteria At DC or during hospital stay patient has or had the following: ACS DIAGNOSIS No Discharge Core Measures Meds if any: Prescribed or Continued at Discharge Meds if any: NOT Prescribed or Continued at Discharge Congestive Heart Failure Inclusion Criteria At DC or during hospital stay patient has or had the following: CHF DIAGNOSIS No Discharge Core Measures Meds if any: Prescribed or Continued at Discharge Meds if any: NOT Prescribed or Continued at Discharge Cerebrovascular accident Inclusion Criteria At DC or during hospital stay patient has or had the following: CVA/TIA Diagnosis No Discharge Core Measures Meds if any: Prescribed or Continued at Discharge Meds if any: NOT Prescribed or Continued at Discharge Venous thromboembolism Inclusion Criteria VTE Diagnosis No VTE Type NONE VTE Confirmed by (Test) NONE Discharge Core Measures - Per Current guidelines, there needs to be overlap - treatment for the first 5 days of Warfarin therapy. - If discharged on Warfarin prior to 5 days of - overlap therapy, the patient will need to be - assessed for post discharge needs including - *Post discharge parental anticoagulation - *Warfarin and/or parental anticoagulation education - *Follow up date to check INR post discharge At least 5 days overlap therapy as Inpatient No Meds if any: Prescribed or Continued at Discharge Note: Overlap Therapy is Warfarin and Anticoagulant Meds if any: NOT Prescribed or Continued at Discharge
[2017-08-03 14:21] VITALS: BP 130/68
[2017-08-03 21:59] VITALS: BP 110/60
[2017-08-04 06:55] VITALS: BP 112/70
--- NOTE | 2017-08-04 07:06 | PN- Housestaff ---
See Addendum Subjective Follow-up For: hypoglycemia Subjective: no overnight events blood sugars improved 80-200 off medications starting metformin Review of Systems Constitutional: Reports: see HPI. Objective Last 24 Hrs of Vital Signs/I&O Vital Signs Date Time Temp Pulse Resp B/P B/P Pulse O2 O2 Flow FiO2 Mean Ox Delivery Rate 08/04 0655 97.6 80 18 112/70 98 Room Air 08/03 2159 99.0 67 20 110/60 97 08/03 1421 97.0 63 18 130/68 99 Room Air 08/03 0832 75 152/68 08/03 0831 75 152/68 Intake & Output 08/04 1600 08/04 0800 08/04 0000 Intake Total 120 120 Output Total 200 600 Balance -80 -480 Intake, Oral 120 120 Output, Urine 200 600 Physical Exam General Appearance: Alert, Oriented X3, Cooperative, No Acute Distress Cardiovascular: Regular Rate, Normal S1, Normal S2, No Murmurs Lungs: Clear to Auscultation, Normal Air Movement Abdomen: Normal Bowel Sounds, Soft, No Tenderness, No Masses Extremities: No Clubbing, No Cyanosis, No Edema, Normal Pulses Current Medications: Current Medications Sig/Yane Start time Last Medication Dose Route Stop Time Status Admin Acetaminophen 650 MG Q8P PRN 08/03 0300 AC PO Amlodipine Besylate 10 MG DAILY 08/03 0900 AC 08/04 PO 0822 Aspirin Buffered 81 MG DAILY 08/03 0900 AC 08/04 PO 0822 Atorvastatin Calcium 20 MG 1700 08/03 1700 AC 08/03 PO 1658 Clopidogrel Bisulfate 75 MG DAILY 08/03 0900 AC 08/04 PO 0822 Dextrose/Sodium 1,000 ML Q13H 08/03 0230 DC 08/03 Chloride IV 0243 Heparin Sodium 5,000 UNIT Q8 08/03 0600 AC 08/04 (Porcine) SC 0629 Hydrochlorothiazide 25 MG DAILY 08/03 0900 AC 08/04 PO 0822 Insulin Aspart 0 TIDAC 08/03 0800 DC SC Metformin HCl 500 MG 0800,1700 08/04 0800 AC 08/04 PO 0822 Metoprolol Succinate 50 MG DAILY 08/03 0900 AC 08/04 PO 0824 Omeprazole 40 MG DAILY AC 08/03 0700 AC 08/04 PO 0629 Patient Medication 1 ED ONE ONE 08/04 1030 DC Teaching ED 08/04 1031 Pioglitazone HCl 30 MG DAILY 08/04 0900 AC 08/04 PO 0822 Assessment/Plan Assessment: 72 year old female with past medical history significant for HTN, HLD, CKD Stage IV, and DM on Januvia, Metformin, and Actos at home was BIBA after altered mental status, loss of consciousness with difficulty to arouse. In the field, her blood glucose was in the 30s and she received 25g of dextrose IVP x 2 and was starting on dextrose containing fluids at [place]. Presumably, she became hypoglycemic from glimeperide and decreased renal clearance in combination with poor oral intake. Endocrinology was consulted. Her last A1c was 7.9. Hypoglycemia; likely medication induced. 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 Hypoglycemia Pain Ratin Pain Location: n/a Pain Goal: Pain 4 or less Pain Plan: prn Tomorrow's Labs & Rationales: none
--- NOTE | 2017-08-04 07:28 | PN- Diabetes ---
Assessment/Plan Diabetes Assessment: Patient states she feels improved. He is eating okay. She is off IV fluids. She has had no further hypoglycemia. The patient's blood sugars yesterday late in the day were 166 before lunch, 204 at bedtime, and 169 this morning before breakfast. Plan: The patient will be on metformin 500 mg twice a day today along with pioglitazone 30 mg daily. She should stay on this medication. Glimepiride should no longer be used. Subjective Subjective: Feels okay Review of Systems Constitutional: Denies: chills, fever. Cardiovascular: Denies: chest pain. Respiratory: Denies: cough, short of breath. Gastrointestinal: Denies: abdominal pain, nausea, vomiting. Skin: Reports: no symptoms. Objective Last 24 Hrs of Vital Signs/I&O Vital Signs Date Time Temp Pulse Resp B/P B/P Pulse O2 O2 Flow FiO2 Mean Ox Delivery Rate 08/04 0555 97.6 80 18 112/70 98 Room Air 08/03 2158 99.0 67 20 110/60 97 08/03 1421 97.0 63 18 130/68 99 Room Air 08/03 0832 75 152/68 08/03 0831 75 152/68 Intake & Output 08/04 0800 08/04 0000 08/03 1600 Intake Total 120 120 880 Output Total 200 600 400 Balance -80 -480 480 Intake, Oral 120 120 880 Number 0 Bowel Movements Output, Urine 200 600 400 Vital Signs Date Time Temp Pulse Resp B/P B/P Pulse O2 O2 Flow FiO2 Mean Ox Delivery Rate 08/04 0555 97.6 80 18 112/70 98 Room Air 08/03 2158 99.0 67 20 110/60 97 08/03 1421 97.0 63 18 130/68 99 Room Air 08/03 0832 75 152/68 08/03 0831 75 152/68 Intake & Output 08/04 0800 08/04 0000 08/03 1600 Intake Total 120 120 880 Output Total 200 600 400 Balance -80 -480 480 Intake, Oral 120 120 880 Number 0 Bowel Movements Output, Urine 200 600 400 Physical Exam General Appearance: alert, awake, comfortable Head: normal appearance Neck: normal inspection Respiratory: normal breath sounds Extremities: normal inspection Current Medications: Current Medications Sig/Yane Start time Last Medication Dose Route Stop Time Status Admin Acetaminophen 650 MG Q8P PRN 08/03 0300 AC PO Amlodipine Besylate 10 MG DAILY 08/03 0900 AC 08/03 PO 0832 Aspirin Buffered 81 MG DAILY 08/03 0900 AC 08/03 PO 0832 Atorvastatin Calcium 20 MG 1700 08/03 1700 AC 08/03 PO 1658 Clopidogrel Bisulfate 75 MG DAILY 08/03 0900 AC 08/03 PO 0832 Dextrose/Sodium 1,000 ML Q13H 08/03 0230 DC 08/03 Chloride IV 0243 Dextrose/Water 1,000 ML ONCE ONE 08/03 0115 DC 08/03 IV 08/03 0914 0119 Heparin Sodium 5,000 UNIT Q8 08/03 0600 AC 08/04 (Porcine) SC 0629 Hydrochlorothiazide 25 MG DAILY 08/03 0900 AC 08/03 PO 0832 Insulin Aspart 0 TIDAC 08/03 0800 DC SC Metformin HCl 500 MG 0800,1700 08/04 0800 AC PO Metoprolol Succinate 50 MG DAILY 08/03 0900 AC 08/03 PO 0831 Omeprazole 40 MG DAILY AC 08/03 0700 AC 08/04 PO 0629 Pioglitazone HCl 30 MG DAILY 08/04 0900 AC PO Findings Pertinent Lab/Vivek Results: Laboratory Tests 08/03 08/02 0610 2046 Chemistry Sodium (137 - 145 mmol/L) 142 139 Potassium (3.5 - 5.1 mmol/L) 5.1 5.5 H Chloride (98 - 107 mmol/L) 107 104 Carbon Dioxide (22 - 30 mmol/L) 21 L 20 L Anion Gap (5 - 16) 13 15 BUN (7 - 17 mg/dL) 42 H 43 H Creatinine (0.5 - 1.0 mg/dL) 1.4 H 1.3 H Estimated GFR (>60 ml/min) 37 L 40 L BUN/Creatinine Ratio (7 - 25 %) 30.0 H 33.1 H Glucose (65 - 99 mg/dL) 75 Calcium (8.4 - 10.2 mg/dL) 10.1 Total Bilirubin (0.2 - 1.3 mg/dL) 0.2 AST (14 - 36 U/L) 24 ALT (9 - 52 U/L) 50 Alkaline Phosphatase (<127 U/L) 69 Troponin I (< 0.11 ng/ml) < 0.01 Total Protein (6.3 - 8.2 g/dL) 7.6 Albumin (3.5 - 5.0 g/dL) 4.2 Globulin (1.9 - 4.2 gm/dL) 3.4 Albumin/Globulin Ratio (1.1 - 2.2 %) 1.2 Hematology CBC w Diff NO MAN DIFF REQ NO MAN DIFF REQ WBC (4.8 - 10.8 /CUMM) 5.8 6.9 RBC (4.20 - 5.40 /CUMM) 3.86 L 4.36 Hgb (12.0 - 16.0 G/DL) 10.5 L 11.8 L Hct (37 - 47 %) 31.2 L 35.5 L MCV (81.0 - 99.0 FL) 80.9 L 81.2 MCH (27.0 - 31.0 PG) 27.3 27.0 MCHC (33.0 - 37.0 G/DL) 33.8 33.3 RDW (11.5 - 14.5 %) 14.5 14.2 Plt Count (130 - 400 /CUMM) 210 214 MPV (7.4 - 10.4 FL) 9.3 8.7 Gran % (42.2 - 75.2 %) 69.2 83.4 H Lymphocytes % (20.5 - 51.1 %) 22.8 14.1 L Monocytes % (1.7 - 9.3 %) 7.2 2.1 Eosinophils % (0 - 5 %) 0.5 0.3 Basophils % (0.0 - 2.0 %) 0.3 0.1 Absolute Granulocytes (1.4 - 6.5 /CUMM) 4.0 5.7 Absolute Lymphocytes (1.2 - 3.4 /CUMM) 1.3 1.0 L Absolute Monocytes (0.10 - 0.60 /CUMM) 0.4 0.1 Absolute Eosinophils (0.0 - 0.7 /CUMM) 0 0 Absolute Basophils (0.0 - 0.2 /CUMM) 0 0
--- NOTE | 2017-08-04 11:25 | Discharge Summary ---
Visit Information Visit Dates Admission Date: 08/02/17 Discharge Date: 08/05/17 Hospital Course Course Attending Physician: Wei De La Cruz MD Primary Care Physician: Unknown Hospital Course: 72 year old female with past medical history significant for HTN, HLD, history of CVA/TIA, CKD Stage IIIB, and DM on Januvia, Metformin, Actos, and Glimeperide who was recently admitted for TIA was brought in by ambulance after she was found at home to have an altered mental status, loss of consciousness with difficulty to arouse by her grandchildren. In the field, her blood glucose was in the 30s and she received 25g of dextrose IVP x 2 and was starting on dextrose containing fluids at . All her oral antihyperglycemic medications were held at the time of admission and endocrinology was consulted. She most likely became hypoglycemic from a combination of glimeperide, decreased renal clearance, and poor oral intake. Her last A1c was 7.9. Her blood sugars were monitored for 24 hours on metformin 500mg po bid and actos 30mg daily, which should be continued on discharge. She also has a microcytic anemia with elevated ferritin and normal serum iron and TIBC and should have an outpatient colonoscopy performed. She was instructed to stop glimeperide, start her new diabetes medication regimen as directed, and monitor her blood sugar at home. She was provided referrals for a new primary care provider and booth cashier, once she obtains [place] health insurance. Allergies: Coded Allergies: No Known Allergies (04/09/17) Disposition Summary Disposition Principal Diagnosis: Hypoglycemia secondary to medications and poor oral intake Diabetes mellitus type II on Actos, Glimeperide, Metformin, and Januvia at home CKD Stage IIIB Additional Diagnosis: Hypertension Hyperlipidemia CKD Stage IIIB History of CVA Discharge Disposition: home or self care Discharge Instructions General Discharge Information Code Status: Full Code Patient's Diet: Diabetic diet Patient's Activity: As tolerated Follow-Up Instructions/Appts: Please follow up with your primary care physician. Stop glimeperide, start your new diabetes medication regimen as directed, and monitor your blood sugar at home. You have been given referrals for a new primary care physician and booth cashier for when you obtain medical insurance in [place]. Medications at Discharge Discharge Medications: Stop taking the following medications: Metformin HCl (Glucophage) 1,000 MG TABLET ORAL TWICE DAILY Qty = 30 Glimepiride (Glimepiride) 4 MG TABLET ORAL DAILY Qty = 30 Sitagliptin Phosphate (Januvia) 100 MG TABLET ORAL DAILY Continue taking these medications: Aspirin (Lo-Dose Aspirin EC) 81 MG TABLET.DR 1 Tablet ORAL DAILY Qty = 30 Comments: Last Taken: 08/05/17 Time: 8:28 AM Atorvastatin Calcium (Atorvastatin Calcium) 20 MG TABLET 1 Tablet ORAL 5 PM Qty = 90 Instructions: .. Comments: Last Taken: 08/04/17 Time: 5:04 PM Amlodipine Besylate (Amlodipine Besylate) 10 MG TABLET 1 Tablet ORAL DAILY Qty = 30 Instructions: .. Comments: Last Taken: 08/05/17 Time: 8:28 AM Clopidogrel Bisulfate (Plavix) 75 MG TABLET 1 Tablet ORAL DAILY Qty = 90 Instructions: .... Comments: Last Taken: 08/05/17 Time: 8:28 AM Omeprazole (Omeprazole) 40 MG CAPSULE.DR 1 Capsule ORAL DAILY Qty = 30 Comments: Last Taken: 08/05/17 Time: 5:09 AM Metoprolol/Hydrochlorothiazide (Metoprolol-Hctz 50-25 MG Tab) 50 MG-25 MG TABLET 1 Tablet ORAL DAILY Comments: Last Taken: 08/05/17 Time: 8:27 AM Start taking the following new medications: Metformin Hydochloride (Glucophage) 500 MG TABLET 1 Tablet ORAL 0800,1700 Qty = 30 No Refills Instructions: .. Comments: Last Taken: 08/05/17 Time: 8:28 AM Pioglitazone HCl (Actos) 30 MG TABLET 1 Tablet ORAL DAILY Qty = 30 No Refills Instructions: .. Comments: Last Taken: 08/05/17 Time: 8:28 AM Copies To: Katelyn HARTMAN,Katelyn; Erick HARTMAN,Yao Attending MD Review Statement Documenting Attending: Wei De La Cruz MD Other Findings: Discharged in stable condition.
[2017-08-04 14:48] VITALS: BP 114/68
[2017-08-04 21:31] VITALS: BP 124/62
[2017-08-05 05:46] VITALS: BP 126/68
--- NOTE | 2017-08-05 07:08 | PN- Housestaff ---
See Addendum Subjective Follow-up For: -hypoglycemia Subjective: I have seen and examined the patient today morning, she seems to be doing well, no new complaints, anticipated discharge today. Review of Systems Constitutional: Reports: see HPI. Objective Last 24 Hrs of Vital Signs/I&O Vital Signs Date Time Temp Pulse Resp B/P B/P Pulse O2 O2 Flow FiO2 Mean Ox Delivery Rate 08/05 0546 98.2 66 20 126/68 97 Room Air 08/04 2131 98.4 71 18 124/62 100 08/04 1448 98.7 75 20 114/68 96 08/04 0824 97.6 80 18 118/72 08/04 0822 97.6 80 18 118/72 Intake & Output 08/05 0800 08/05 0000 08/04 1600 Intake Total 250 250 800 Output Total 300 200 400 Balance -50 50 400 Intake, IV 10 10 Intake, Oral 240 240 800 Output, Urine 300 200 400 Physical Exam General Appearance: Alert, Oriented X3, Cooperative, No Acute Distress Skin: No Rashes, No Breakdown, No Significant Lesion Cardiovascular: Regular Rate, Normal S1, Normal S2, No Murmurs Lungs: Clear to Auscultation, Normal Air Movement Abdomen: Normal Bowel Sounds, Soft, No Tenderness Neurological: Normal Speech, Strength at 5/5 X4 Ext, Normal Tone, Sensation Intact, Cranial Nerves 3-12 NL Extremities: No Clubbing, No Cyanosis, No Edema, Normal Pulses Current Medications: Current Medications Sig/Yane Start time Last Medication Dose Route Stop Time Status Admin Acetaminophen 650 MG Q8P PRN 08/03 0300 AC PO Amlodipine Besylate 10 MG DAILY 08/03 09 AC 08/04 PO 08 Aspirin Buffered 81 MG DAILY 08/03 09 AC 08/04 PO 08 Atorvastatin Calcium 20 MG 1700 08/03 1700 AC 08/04 PO 1704 Clopidogrel Bisulfate 75 MG DAILY 08/03 09 AC 08/04 PO 08 Heparin Sodium 5,000 UNIT Q8 08/03 599 AC 08/05 (Porcine) SC 0508 Hydrochlorothiazide 25 MG DAILY 08/03 09 AC 08/04 PO 08 Metformin HCl 500 MG 0800,1700 08/04 0800 AC 08/04 PO 170 Metoprolol Succinate 50 MG DAILY 08/03 09 AC 08/04 PO 0824 Omeprazole 40 MG DAILY AC 08/03 0700 AC 08/05 PO 0509 Patient Medication 1 ED ONE ONE 08/04 1030 MI Teaching ED 08/04 1031 Pioglitazone HCl 30 MG DAILY 08/04 0900 AC 08/04 PO 0822 Lines/Diet/Fluids Restraints: none Assessment/Plan Assessment: 72 year old female with past medical history significant for HTN, HLD, CKD Stage IV, and DM on Januvia, Metformin, and Actos at home was BIBA after altered mental status, loss of consciousness with difficulty to arouse. In the field, her blood glucose was in the 30s and she received 25g of dextrose IVP x 2 and was starting on dextrose containing fluids at [place]. Presumably, she became hypoglycemic from glimeperide and decreased renal clearance in combination with poor oral intake. Endocrinology was consulted. Her last A1c was 7.9. Patient planned for d/c today on metformin and actos. Hypoglycemia; likely medication induced. 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 Hypertensive urgency 2. Hypoglycemia Pain Ratin Pain Location: tylenol Pain Goal: Remain pain free Pain Plan: .. Tomorrow's Labs & Rationales: .. Discharge Plan Discharge Disposition: home Stable for Discharge? No
[2017-08-05 08:28] VITALS: BP 122/62
--- NOTE | 2017-08-05 10:23 | PN- Diabetes ---
Assessment/Plan Diabetes Assessment: The patient states she feels improved. She is eating okay. She has had no further low blood sugar reactions. The patient's fingerstick blood sugars yesterday were 169 before breakfast, 201 before lunch, 180 before dinner, and 169 at bedtime. This morning her fingerstick sugar is 165. The patient is on Metformin and pioglitazone. Plan: Suggest continue the present regimen. If the patient goes home today she can go home on metformin and pioglitazone. She should remain off the glimeperide. Subjective Subjective: Feels improved Review of Systems Constitutional: Denies: chills, fever. Cardiovascular: Denies: chest pain. Respiratory: Denies: cough, short of breath. Gastrointestinal: Denies: abdominal pain, nausea, vomiting. Skin: Reports: no symptoms. Objective Last 24 Hrs of Vital Signs/I&O Vital Signs Date Time Temp Pulse Resp B/P B/P Pulse O2 O2 Flow FiO2 Mean Ox Delivery Rate 08/06 827 80 122/08/05 0827 80 122/62 08/05 0546 98.2 66 20 126/68 97 Room Air 08/04 2130 98.4 71 18 124/62 100 08/04 1448 98.7 75 20 114/68 96 Intake & Output 08/05 1600 08/05 0800 08/05 0000 Intake Total 250 250 Output Total 300 200 Balance -50 50 Intake, IV 10 10 Intake, Oral 240 240 Output, Urine 300 200 Vital Signs Date Time Temp Pulse Resp B/P B/P Pulse O2 O2 Flow FiO2 Mean Ox Delivery Rate 08/06 827 80 122/62 08/05 0827 80 122/62 08/05 0546 98.2 66 20 126/68 97 Room Air 08/041 98.4 71 18 124/62 100 08/04 1448 98.7 75 20 114/68 96 Intake & Output 08/05 1600 08/05 0800 08/05 0000 Intake Total 250 250 Output Total 300 200 Balance -50 50 Intake, IV 10 10 Intake, Oral 240 240 Output, Urine 300 200 Physical Exam General Appearance: alert, awake, comfortable Neck: normal inspection Respiratory: normal breath sounds Cardiovascular: regular rate/rhythm Abdomen: normal bowel sounds Extremities: normal inspection Current Medications: Current Medications Sig/Yane Start time Last Medication Dose Route Stop Time Status Admin Acetaminophen 650 MG Q8P PRN 08/03 0300 AC PO Amlodipine Besylate 10 MG DAILY 08/03 0900 AC 08/05 PO 0828 Aspirin Buffered 81 MG DAILY 08/03 0900 AC 08/05 PO 0828 Atorvastatin Calcium 20 MG 1700 08/03 1700 AC 08/04 PO 1704 Clopidogrel Bisulfate 75 MG DAILY 08/03 0900 AC 08/05 PO 0828 Heparin Sodium 5,000 UNIT Q8 08/03 0600 AC 08/05 (Porcine) SC 0508 Hydrochlorothiazide 25 MG DAILY 08/03 0900 AC 08/05 PO 0828 Metformin HCl 500 MG 0800,1700 08/04 0800 AC 08/05 PO 0828 Metoprolol Succinate 50 MG DAILY 08/03 0900 AC 08/05 PO 0827 Omeprazole 40 MG DAILY AC 08/03 0700 AC 08/05 PO 0509 Patient Medication 1 ED ONE ONE 08/04 1030 DC Teaching ED 08/04 1031 Pioglitazone HCl 30 MG DAILY 08/04 0900 AC 08/05 PO 0828
[2017-08-05] MEDS ORDERED: GLUCOPHAGE500 M1 PO ×2 (12:31→17:07)
[2017-08-05] MEDS ORDERED: ACTOS30 M1 PO ×2 (12:31→17:08)
== END 2017-08-05 17:10 | DRG 420 ==
LOC: ERH 19:34 → 2NA 22:23 → ERHI 22:23 → EDBEDREQ 08-03 02:00 → EDBEDREQTM 08-03 02:00 → ERHI 08-03 02:08 → ENRESERV 08-03 03:00 → 2NA 08-03 04:22 → ENPENDDIS 08-05 13:10 → ENTRNSPT 08-05 16:33 → EDTRNSPTSTS 08-05 16:54 → 2NA 08-05 17:10 → CMPTRNSPT 08-05 17:29
PROVIDERS: Emergency Medicine; Internal Medicine
DX: E11.649 Type 2 diabetes mellitus with hypoglycemia without coma (principal); T38.3X5A Adverse effect of insulin and oral hypoglycemic [antidiabetic] drugs, initial encounter; Z79.84 Long term (current) use of oral hypoglycemic drugs; E87.5 Hyperkalemia; E11.22 Type 2 diabetes mellitus with diabetic chronic kidney disease; I12.9 Hypertensive chronic kidney disease with stage 1 through stage 4 chronic kidney disease, or unspecified chronic kidney disease; N18.3 Chronic kidney disease, stage 3 (moderate); E78.5 Hyperlipidemia, unspecified; I16.0 Hypertensive urgency; E11.42 Type 2 diabetes mellitus with diabetic polyneuropathy; K21.9 Gastro-esophageal reflux disease without esophagitis; H26.9 Unspecified cataract
CPT/HCPCS: 2NASP; ERO; 36592; 82436; 93005; 93010; J1644; J7042